=== PATIENT | female | born 2000 | race Caucasian/White ===

== ENCOUNTER 2024-01-07 05:44 | Inpatient (IN) | payer MEDICARE, SELFPAY ==
[2024-01-07] VITALS (11 sets, daily range): BP systolic 134–200; BP diastolic 76–134; BMI 49.5; BMI 49.6
[2024-01-07 01:17] LABS: Hemoglobin 14.3 g/dL (12.0-16.0); Mean Corpuscular Hgb 27.2 pg (27.0-31.0); Mean Platelet Volume 9.6 fL (7.4-10.4); Platelet Count 503 10^3/uL (130-400); Red Blood Cell Count 5.25 10^6/uL (4.20-5.40); Red Cell Dist. Width 14.1 % (11.5-14.5); White Blood Cell Count 22.7 10^3/uL (4.8-10.8)
[2024-01-07 01:30] LABS: ALT (SGPT) 30 U/L (0-35); AST (SGOT) 30 U/L (14-36); Albumin 4.4 g/dl (3.5-5.0); Alkaline Phosphatase 81 U/L (38-126); Blood Urea Nitrogen 23 mg/dl (7-17); Calcium 10.4 mg/dl (8.4-10.2); Carbon Dioxide 19 mmol/L (22-30); Chloride 105 mmol/L (98-107); Glucose 144 mg/dl (70-99); Potassium 5.2 mmol/L (3.5-5.1); Sodium 143 mmol/L (135-145); Total Bilirubin 0.3 mg/dl (0.2-1.3); Total Protein 7.2 g/dl (6.3-8.2); eGFR > 60.00
[2024-01-07 02:00] LABS: Urine Albumin 1+ (Neg - Trace); Urine Bilirubin Negative (Negative); Urine Character Very Cloudy (Clear); Urine Color Red; Urine Glucose Negative (Negative); Urine Ketone Negative (Negative); Urine Leukocyte Trace (Negative); Urine Nitrite Positive (Negative); Urine Occult Blood 4+ (Negative); Urine Urobilinogen Negative (Neg - 1+)
[2024-01-07 02:25] LABS: Urine Red Blood Cell >100 /HPF (0-2); Urine Squamous Cell >30 /LPF (Few)
[2024-01-07 02:26] LABS: Urine Bacteria Many (Negative)
[2024-01-07 02:42] LABS: Urine Albumin 3+ (Neg - Trace); Urine Bilirubin Negative (Negative); Urine Character Bloody (Clear); Urine Color Red; Urine Glucose Negative (Negative); Urine Ketone Trace (Negative); Urine Leukocyte Negative (Negative); Urine Nitrite Negative (Negative); Urine Occult Blood 4+ (Negative); Urine Urobilinogen Negative (Neg - 1+)
[2024-01-07 03:09] LABS: HCG, Serum Qualitative Screen Negative
[2024-01-07 03:10] LABS: Urine Red Blood Cell >100 /HPF (0-2)
[2024-01-07 03:11] LABS: Urine Bacteria Many (Negative)
[2024-01-07 03:12] LABS: Urine Squamous Cell >30 /LPF (Few)
[2024-01-07] MEDS: NSS 1000 IV ×2 (04:02→09:46)
[2024-01-07] MEDS: TORADOL 30 MG IV (04:02)
--- NOTE | 2024-01-07 05:08 | ED.GENMED ---
History of Present Illness
General
Chief Complaint: Abdominal Pain
Source: patient
Exam Limitations: none
Time Seen by Provider: 01/07/24 04:21
Nursing documentation reviewed up to this point in time: agreed with
History of Present Illness
History of Present Illness:
23-year-old female with past medical history as documented presents to the emergency room for evaluation of abdominal/flank pain. Patient reports onset of symptoms earlier this evening and they have been constant although intensity waxing and
waning since that time. She reports pain in the right mid abdomen radiates towards the right flank. No clear triggering or relieving factors noted. Associated with nausea, vomiting. She also reports some diaphoresis. She says she has noticed
some hematuria today. She denies any dysuria. She denies any fevers or chills. She denies any other complaints. She does have a history of kidney stones that she says feels similar.
Review of Systems
Review of Systems
All Other Systems: ROS reviewed and negative except as documented in HPI and ROS
Constitutional: Denies fever or chills
Respiratory: Denies trouble breathing
Cardiac: Denies chest pain or palpitations
ABD/GI: Reports abdominal pain, nausea and vomiting; Denies diarrhea
: Reports flank pain and bleeding; Denies dysuria
Musculoskeletal: Denies neck pain or back pain
Neurological: Denies dizzy or headache
Phy Exam
Physical Exam
Physical Exam:
General: Awake, alert; no acute distress
Head: Normocephalic, atraumatic
Eyes: Conjunctiva normal, sclera anicteric
Throat: Airway intact, handling secretions
Neck: Trachea midline
Lungs: Clear to auscultation bilaterally, no wheezing, rales, rhonchi
Heart: Regular rate and rhythm, no murmurs, gallops, or rubs
Abd: Soft, non distended, mild right-sided abdominal tenderness
Back: No CVA tenderness
Neuro: No gross deficit
Extremities: Warm and well-perfused with no edema
Scores
Heart Failure Risk
Heart Failure Risk Score: Not Applicable
Heart Score for Chest Pain Patients
STEMI patient?: Not applicable
Withdrawal Assessment of Alcohol
Withdrawal Assessment Completed?: Not applicable
Course
Orders/Labs/Results
Orders:
Orders
01/07/24 01:10
CMP [Comprehensive Metabolic Panel] Urgent
Complete Blood Count/No Diff Urgent
HCG, Serum Qualitative Screen Urgent
01/07/24 01:42
Urinalysis Reflex To Culture Urgent
Date Specimen was Collected: 01/07/24
Time Specimen was Collected: 01:40
Urine Microscopic Reflex Cult Urgent
Urine Culture Urgent
KYRA Source: U
Specimen Description:
Date Specimen was Collected: 01/07/24
Time Specimen was Collected: 01:40
01/07/24 02:34
Urinalysis Reflex To Culture Urgent
Date Specimen was Collected: 01/07/24
Time Specimen was Collected: 02:29
Urine Microscopic Reflex Cult Urgent
Urine Culture Urgent
KYRA Source: U
Specimen Description:
Date Specimen was Collected: 01/07/24
Time Specimen was Collected: 02:29
01/07/24 02:50
Add On- LAB Urgent
Tests Added?: serum HCG qual.
01/07/24 03:52
CT Abd/Pel (IV only)-DH only Urgent
Comment:
Reason For Exam: abd pain
01/07/24 03:55
0.9% Sodium Chloride 1000 ml [Nss] 1,000 ml IV BOLUS
Ketorolac [Toradol] 30 mg IV NOW STA
01/07/24 05:05
Morphine Sulfate 4 mg IV NOW STA
01/07/24 05:08
UROLOGY CONSULT Urgent
Consulting Provider: Owen Alves
Was physician already notified: Yes
CefTRIAXone [Rocephin] 1,000 mg IV NOW STA
01/07/24 05:15
Ondansetron Injectable [Zofran] 4 mg IV NOW STA
01/07/24 05:16
Sterile Water [Sterile Water For Injection] 10 ml .ROUTE .STK-MED ONE
Abnormal Lab Results
01/07/24 01/07/24 01/07/24
01:10 01:42 02:34
WBC 22.7 H 10^3/uL
(4.8-10.8)
MCV 80.0 L fL
(81.0-99.0)
Plt Count 503 H 10^3/uL
(130-400)
Potassium 5.2 H mmol/L
(3.5-5.1)
Carbon Dioxide 19 L mmol/L
(22-30)
BUN 23 H mg/dl
(7-17)
Glucose 144 H mg/dl
(70-99)
Calcium 10.4 H mg/dl
(8.4-10.2)
Urine Ketones Trace A
(Negative)
Ur Occult Blood Reflex 4+ A 4+ A
(Negative) (Negative)
Urine Nitrite (Reflex) Positive A
(Negative)
Leukocyte Esterase Rfl Trace A
(Negative)
Urine RBC >100 A /HPF >100 A /HPF
(0-2) (0-2)
Urine Bacteria (Reflex) Many A Many A
(Negative) (Negative)
Urine Albumin (Reflex) 1+ A 3+ A
(Neg - Trace) (Neg - Trace)
01/07/24 01:10
01/07/24 01:10
Vital Signs
Initial and Last Documented VS:
Initial Vital Signs
Temp Pulse Resp BP Pulse Ox
36.3 C 92 26 200/134 97
01/07/24 00:57 01/07/24 00:57 01/07/24 00:57 01/07/24 00:57 01/07/24 00:57
Last Documented Vital Signs
Temp Pulse Resp BP Pulse Ox
36.3 C 90 20 158/97 94
01/07/24 00:57 01/07/24 05:00 01/07/24 05:00 01/07/24 05:00 01/07/24 05:00
MDM/Problems Addressed
Differential Diagnosis Includes:
Kidney stone, appendicitis, ovarian cyst
MDM/Problems Addressed:
23-year-old female presents for evaluation of right sided abdominal pain associate with nausea, hematuria�similar in quality to prior kidney stones. Hypertensive, tachypneic, heart rate in the 90s, afebrile. Exam as above. Send labs including a
CBC and a CMP, hCG, urinalysis. Check CT abdomen pelvis. Treat pain and provide fluids. Reassess after the above.
Patient still having pain after Toradol will treat with morphine�requesting Zofran for nausea as well.
Labs reviewed CBC shows leukocytosis to 22.7. CMP shows acceptable renal function, marginal hyperkalemia. hCG negative. Urinalysis positive for blood also has many bacteria; WBCs obscured by RBCs. There are squamous cells that suggest
contaminated sample. CT of the abdomen pelvis shows obstructive 3 mm stone on the right with moderate hydronephrosis. There is also question of left-sided pyelonephritis. Given that she has multiple SIRS criteria including WBC of 22 and an
abnormal urinalysis we will treat with antibiotics. Case discussed with urology to consult. Will admit for continued care�case discussed with hospitalist.
Acute Exacerbation and/or Progression of Chronic Illness:
Acutely hypertensive likely related to pain�improved with pain control continue to monitor but no additional antihypertensives indicated at present
Acute Exacerbation and/or Progression of Chronic Illness: HTN
*Radiology
Radiology exam reviewed: radiology read reviewed
*Pulse Oximetry
Patient hypoxic: no
*Critical Care Note
Total Time (30-74mins, 75-104mins- exclusive of procedures): Not Applicable
Data Reviewed
Source: patient and spouse
Patient Management
Discussion with other providers: Hospitalist (Discussed with hospitalist) and [employer] Supervisor (Discussed with urology)
Escalation/DeEscalation of care consider admission/obs:
Admission indicated
ED Attending Note
-
Portions of this chart may have been created with voice recognition software.� Occasional wrong word or��sound alike� substitutions may have occurred due to the inherent limitations of voice recognition software.
Discharge Plan
Departure
Patient Disposition: Admit
Date of Disposition: 01/07/24
Time of Disposition: 05:09
Admit to doctor: Chris
Presentation/result/management discussed w/ accepting MD/DO: Hospitalist
Discharge Problem:
Kidney stone, Pyelonephritis
Prescriptions:
No Action
Mirena 21 mcg/24 hr (8 yrs) 52 mg Intrauterine Device
1 device INTRAUTERINE ONCE
omeprazole 40 mg Capsule,Delayed Release(Dr/Ec)
40 mg PO BID
propranolol [Inderal] 20 mg Tablet
20 mg PO BID
indomethacin 75 mg Capsule, Extended Release
75 mg PO BID
nortriptyline [Pamelor] 50 mg Capsule
50 mg PO HS
duloxetine [Cymbalta] 60 mg Capsule,Delayed Release(Dr/Ec)
120 mg PO DAILY
pregabalin [Lyrica] 150 mg Capsule
150 mg PO BID
Botox 200 unit Recon Soln
200 unit SC ONCE
lurasidone [Latuda] 40 mg Tablet
40 mg PO DAILY
Ozempic 0.25 mg or 0.5 mg(2 mg/1.5 mL) Pen Injector
0.5 mg SC QWEEK
Referrals:
PRIVATE,PHYSICIAN [Family Provider] -
Interventions
Interventions:
*Risk Screen - Suicide Last Done: 01/07/24 00:57
*General Assessment Last Done: 01/07/24 02:27
*Neglect/Abuse Screening Last Done: 01/07/24 00:57
ED- Fall Risk Assessment Last Done: 01/07/24 02:28
*ED COVID-19 Vaccine History Last Done: 01/07/24 02:27
ZG-Htqfqe-Euqpuzgfbs Assessment Last Done: 01/07/24 03:06
Discharge Date and Time
Print Language: [place]LAND[place]
[2024-01-07] MEDS: MORPHINE SULFATE 4 MG IV (05:20)
[2024-01-07] MEDS: ZOFRAN 4 MG IV (05:20)
[2024-01-07] MEDS: ROCEPHIN 1000 MG IV (05:20)
--- NOTE | 2024-01-07 05:37 | HPS.HSE ---
Family Physician
-
Family Physician: PHYSICIAN PRIVATE
Chief Complaint
-
Abd Pain
History of Present Illness
Patient is a 23y F with PMH significant for PCOS, anxiety / depression and prior nephrolithiasis who presents to ED complaining of abdominal pain. Patient states her symptoms started this evening hours prior to presentation. She started with
RUQ abdominal pain that was quite severe. This was followed by nausea and emesis at home as well as diaphoresis, lightheadedness and shaking chills. Patient presented to the ED for further evaluation.
After arrival at the ED, patient has noted bloody urine.
Patient reports prior kidney stone about 3 years ago with pain in similar location. She passed that stone spontaneously.
She denies any other recent complaints or concerns.
Medical History
Past Medical History
Past Medical History: Reports Other
Additional Past Medical History:
PCOS
Morbid Obesity
Migraine Headaches
Anxiety / Depression
Borderline Personality Disorder
Lumbar Spondylosis
Past Surgical History: Reports Other
Additional Past Surgical History:
Cholecystectomy
Social History
Tobacco: Non-smoker
Alcohol: Occasional
Drug: Marijuana (Medical card)
Personal: Partner
Family History
Family History: Not pertinent
Allergies / Home Medications
Allergies reflects when Allergies were last updated in [employer].
Home Medications with original date entered in [employer]
Allergy/Medication List:
Allergies
Allergy/AdvReac Type Severity Reaction Status Date / Time
hydroxyzine Allergy Unknown Verified 01/07/24 01:02
lamotrigine [From Lamictal] Allergy Unknown Verified 01/07/24 01:02
oxycodone Allergy Unknown Verified 01/07/24 01:02
peanut oil Allergy Unknown Verified 01/07/24 01:02
topiramate [From Topamax] Allergy Unknown Verified 01/07/24 01:02
ziprasidone Allergy Unknown Verified 01/07/24 01:02
Home Medications
duloxetine 60 mg capsule,delayed release (Cymbalta) 120 mg PO DAILY 01/07/24
indomethacin 75 mg capsule,extended release 75 mg PO BID 01/07/24
levonorgestrel 21 mcg/24 hr (up to 8 years) 52 mg intrauterine device (Mirena) 1 device intrauterine ONCE 01/07/24
lurasidone 40 mg tablet (Latuda) 40 mg PO DAILY 01/07/24
nortriptyline 50 mg capsule (Pamelor) 50 mg PO HS 01/07/24
omeprazole 40 mg capsule,delayed release 40 mg PO BID 01/07/24
onabotulinumtoxinA 200 unit solution for injection (Botox) 200 unit SC ONCE 01/07/24
pregabalin 150 mg capsule (Lyrica) 150 mg PO BID 01/07/24
propranolol 20 mg tablet 20 mg PO BID 01/07/24
semaglutide 0.25 mg or 0.5 mg (2 mg/1.5 mL) subcutaneous pen injector (Ozempic) 0.5 mg SC QWEEK 01/07/24
Review of Systems
-
History Source: Patient
A 12 point ROS was completed and negative except as noted: Yes
Constitutional: Reports Fatigue and Chills; Denies Fever
EENT: Denies Sore Throat
Respiratory: Denies Cough or Trouble Breathing
Cardiac: Denies Chest Pain or Palpitations
Abdomen/GI: Reports Abdominal Pain, Nausea and Vomiting; Denies Diarrhea, Bloody Stools or Black Stools
: Reports Bleeding; Denies Dysuria or Frequency
Neurological: Reports Dizzy; Denies Headache
Psych: Denies Depression or Anxiety
Physical Exam
Vital Signs
Vital Signs
Temp Pulse Resp BP Pulse Ox
97.4 F 90 20 158/97 94
01/07/24 00:57 01/07/24 05:00 01/07/24 05:00 01/07/24 05:00 01/07/24 05:00
Physical Exam
General: Other (23y F in no acute distress.)
HEENT: Moist mucous membranes, PERRLA and Other (Thick neck.)
Respiratory: Clear; No Wheezes, Rales or Rhonchi
Cardiac: S1/S2 and Regular Rhythm; No Murmur
GI: Soft, Non Distended, Normal Bowel Sounds and Other (Pos RUQ tenderness. No rebound / guarding.)
Genito-urinary: No costovertebral tender
Musculoskeletal: No Clubbing, No Cyanosis and No Edema
Neuro: AO x 3
Laboratory Results
-
01/07/24 01:10
01/07/24 01:10
Laboratory Results
Total Bilirubin 0.3 mg/dl (0.2-1.3) 01/07/24 01:10
AST 30 U/L (14-36) 01/07/24 01:10
ALT 30 U/L (0-35) 01/07/24 01:10
Alkaline Phosphatase 81 U/L (38-126) 01/07/24 01:10
Impression/Plan
-
A/P: Patient is a 23y F with PMH significant for PCOS and anxiety / depression who presents to ED complaining of abdominal pain.
Right Ureteral Stone
Pyelonephritis
- Admit for further evaluation and treatment.
- CT shows R UVJ stone with associated hydronephrosis.
- Pos RUQ tenderness on exam, WBC = 22k, subjective chills and hematuria.
- IV abx with ceftriaxone for now.
- Pain control, antiemetics, IVFs, etc.
- Tamsulosin daily. Strain urine.
- Urology consulted - NPO for possible OR later this AM.
- Follow for any new / worsening symptoms.
Hyperkalemia
- Mild. IVFs as noted above. Follow-up repeat labs.
Anxiety / Depression
Borderline Personality Disorder
- Stable. Continue current psychotropic med regimen without changes.
PCOS
Morbid Obesity
- Affects all aspects of care.
- Patient on Ozempic as an outpatient for weight loss.
- Encourage healthy diet and increased exercise with goal of weight reduction.
DVT Prophylaxis: SCDs
Code Status: Full
--- NOTE | 2024-01-07 07:25 | W.PN.UPDATE ---
Update Note
Progress Note Update
Patient's pain is improved, 2 out of 10 in intensity.
Discussed with urology, recommend discharge home on oral antibiotics and Flomax.
Follow-up with urology in the office.
--- NOTE | 2024-01-07 09:05 | W.PN.URO.CBU ---
Today's Communication / Plan
-
await cbc but regular diet and no op room unless pt worsens
Assessment / Plan
-
trial of probably at home bur await cbc pt comfortable ad non toxic and stone 3mm with min hydro
Diagnosis
-
Date of Service: January 07, 2024
-
Patient Diagnosis:3 mm stone ryt uvj stone and possible left pyelo but asx left no fevr
Post Op Day:
Subjective
-
rt colic no fever no left pain
Objective
-
Vital Signs
Temp Pulse Resp BP Pulse Ox
98.0 F 87 16 164/95 98
01/07/24 08:18 01/07/24 08:18 01/07/24 08:18 01/07/24 08:18 01/07/24 08:18
Laboratory Results
01/07/24 01:10
01/07/24 01:10
Review of Systems
-
: Flank Pain
Physical Exam
-
General - well developed, well nourished, no acute distress
Chest - clear bilaterally
Abdomen - soft, non-tender, positive bowel sounds, no CVAT, no incisional pain or distention
Genitalia - normal
Rectal - normal
Skin - warm & dry with no rash
Neuro - AOx3, no motor deficits
Extremities - no clubbing, no cyanosis, no edema
Incision - clean, dry
Dressing - clean, dry, intact
Care Review
Data Reviewed
Discussed with: Hospitalist and Nursing
CT Scan: Image Pers Reviewed
[2024-01-07] MEDS: CYMBALTA DELAYED RELEASE 120 MG PO (09:46)
[2024-01-07] MEDS: LYRICA 150 MG PO (09:46)
[2024-01-07] MEDS: FLOMAX 0.4 MG PO (09:47)
[2024-01-07] MEDS: PROTONIX 40 MG PO (09:47)
[2024-01-07] MEDS: DILAUDID 0.5 MG IV (09:49)
[2024-01-07 10:05] LABS: Hematocrit 42.3 % (37.0-47.0); Mean Corp Hgb Conc. 33.1 g/dL (33.0-37.0); Mean Corpuscular Hgb 27.7 pg (27.0-31.0); Mean Corpuscular Volume 83.8 fL (81.0-99.0); Platelet Count 423 10^3/uL (130-400); Red Blood Cell Count 5.05 10^6/uL (4.20-5.40); White Blood Cell Count 20.6 10^3/uL (4.8-10.8)
[2024-01-07] MEDS: INDERAL 20 MG PO (10:21)
[2024-01-07] MEDS: LATUDA 40 MG PO (10:21)
[2024-01-07 13:13] LABS: Hematocrit 39.3 % (37.0-47.0); Hemoglobin 13.1 g/dL (12.0-16.0); Mean Corp Hgb Conc. 33.3 g/dL (33.0-37.0); Mean Corpuscular Hgb 26.8 pg (27.0-31.0); Mean Corpuscular Volume 80.5 fL (81.0-99.0); Platelet Count 450 10^3/uL (130-400); Red Blood Cell Count 4.88 10^6/uL (4.20-5.40); Red Cell Dist. Width 14.1 % (11.5-14.5); White Blood Cell Count 20.9 10^3/uL (4.8-10.8)
--- NOTE | 2024-01-07 13:54 | CM ---
Reviewed the chart notes and spoke with the patient and her significant other at the bedside. The patient resides with her significant other and his father in a one story home with one step to enter. Patient reports no DME/VN/SNF in the past. The
patient confirmed her pharmacy of choices is [facility]. CM continues to be available to patient/family and is monitoring medical plan for needs at discharge.
Plan: Discharge to home today. Patient's significant other will provide transportation home.
== END 2024-01-07 15:01 | disposition home or self-care (01) | DRG 690 ==
LOC: 2 NORTH 05:44
PROVIDERS: Emergency Medicine; ADMITTING PHYSICIAN Hospitalist; ATTENDING PHYSICIAN Family Medicine; CONSULT PHYSICIAN Specialist; EMERGENCY PHYSICIAN Emergency Medicine
DX: N13.6 Pyonephrosis (principal); Z68.42 Body mass index [BMI] 45.0-49.9, adult; F32.A Depression, unspecified; F41.9 Anxiety disorder, unspecified; E87.5 Hyperkalemia; E28.2 Polycystic ovarian syndrome; E66.01 Morbid (severe) obesity due to excess calories; F60.3 Borderline personality disorder; G43.909 Migraine, unspecified, not intractable, without status migrainosus; M47.816 Spondylosis without myelopathy or radiculopathy, lumbar region; Z88.5 Allergy status to narcotic agent; Z88.8 Allergy status to other drugs, medicaments and biological substances; Z79.899 Other long term (current) drug therapy
CPT/HCPCS: 74177; 80053; 81003; 81015; 84703; 85027; 87070; 87086; 96361; 96374; 96375; 99285; Q9967

== ENCOUNTER 2024-03-25 09:45 | Emergency (ER) | payer OTHER, SELFPAY ==
[2024-03-25 10:01] VITALS: BP 144/93
[2024-03-25] MEDS: ZOFRAN 4 MG IV ×2 (11:25→13:02)
[2024-03-25 11:26] VITALS: BP 160/110
[2024-03-25] MEDS: TORADOL 30 MG IV (11:26)
[2024-03-25 11:29] VITALS: BP 136/81
[2024-03-25 11:34] LABS: % Basophils 0.6 % (0-2); % Eosinophils 0.3 % (0-6); % Immature Granulocytes 1.2 % (0-0.5); % Lymphocytes 17.2 % (20.5-51.1); % Monocytes 6.4 % (1.7-9.3); % Neutrophils 74.3 % (42.2-75.2); Absolute Basophils 0.1 10^3/uL (0-0.2); Absolute Eosinophils 0.1 10^3/uL (0-0.7); Absolute Immature Granulocytes 0.2 10^3/uL (0-0.05); Absolute Lymphocytes 3.3 10^3/uL (1.2-3.4); Absolute Monocytes 1.2 10^3/uL (0.1-0.6); Absolute Neutrophils 14.3 10^3/uL (1.4-6.5); Hemoglobin 15.8 g/dL (12.0-16.0); Mean Corp Hgb Conc. 33.6 g/dL (33.0-37.0); Mean Corpuscular Hgb 27.8 pg (27.0-31.0); Mean Corpuscular Volume 82.6 fL (81.0-99.0); Mean Platelet Volume 10.2 fL (7.4-10.4); Nucleated Red Blood Cells % 0 %; Platelet Count 433 10^3/uL (130-400); Red Blood Cell Count 5.69 10^6/uL (4.20-5.40); Red Cell Dist. Width 14.2 % (11.5-14.5); White Blood Cell Count 19.3 10^3/uL (4.8-10.8)
--- NOTE | 2024-03-25 11:45 | ED.GENMED ---
History of Present Illness
General
Chief Complaint: Flank Pain
Source: patient and records
Time Seen by Provider: 03/25/24 10:56
History of Present Illness
History of Present Illness:
23 year old female with past medical history of kidney stone/pyelonephritis, anxiety/depression, previous cholecystectomy presenting to the emergency department for evaluation of right-sided flank pain that started about 1 week ago accompanied with
nausea and vomiting with pain described to be constant, nonradiating, somewhat sharp and unrelieved with [id number] measures. Patient states that within the week she believes she has passed 2 kidney stones and also notes that her OTA had
placed her on antibiotics for a UTI and when asked if she had any urinary symptoms patient said no but her OTA still decided to start her on an antibiotic. On record review it appears patient was seen here at this hospital in December and
diagnosed with a right 3 mm UVJ stone with resulting pyelonephritis, was admitted for IV antibiotics and ultimately discharged home.
Past History
Past History
ED Past Medical History: Psychiatric and Other (Kidney stones)
Social History
Tobacco: Non-smoker
Alcohol: None
Drug: None
Personal: Single
Living: with family
Review of Systems
Review of Systems
All Other Systems: ROS reviewed and negative except as documented in HPI and ROS
Phy Exam
Physical Exam
Physical Exam:
GENERAL: Alert , in no apparent distress but does appear mildly uncomfortable
EYE: clear conjunctiva b/l
HEAD: NCAT
ENT: o/p clr, mmm.
CARDIAC: Regular rate and rhythm .
LUNGS: Clear breath sounds bilaterally, no acute respiratory distress, no wheezes/rales/rhonchi
ABDOMEN: Soft, without focal tenderness, no r/g, right CVAT
NEUROLOGICAL: Alert and oriented
SKIN: Warm and dry, skin intact.
MUSCULOSKELETAL: No edema, well perfused.
PSYCH: Normal and appropriate interaction.
Scores
Heart Failure Risk
Heart Failure Risk Score: Not Applicable
Heart Score for Chest Pain Patients
STEMI patient?: Not applicable
Withdrawal Assessment of Alcohol
Withdrawal Assessment Completed?: Not applicable
Course
Orders/Labs/Results
Orders:
Orders
03/25/24 10:57
Test Result ONCE
03/25/24 11:09
CT Abd/pel Without Iv Or Oral Urgent
Comment:
Reason For Exam: right flank pain, hx stones
Ketorolac [Toradol] 30 mg IV NOW STA
Ondansetron Injectable [Zofran] 4 mg IV NOW STA
03/25/24 11:25
Complete Blood Count/With Diff Urgent
Comprehensive Metabolic Panel Urgent
HCG, Serum Qualitative Screen Urgent
Lipase Urgent
03/25/24 12:54
CefTRIAXone [Rocephin] 1,000 mg IV NOW STA
Morphine Sulfate 4 mg IV NOW STA
Ondansetron Injectable [Zofran] 4 mg IV NOW STA
03/25/24 13:00
Lactic Acid Q4H
Comment: CANCEL 2nd LACTIC ACID IF 1st LACTIC ACID IS LESS THAN 2
Procalcitonin Urgent
PCT Algorithmm Indication: Sepsis
03/25/24 14:25
Prochlorperazine [Compazine] 10 mg IV NOW STA
03/25/24 14:41
Urinalysis Reflex To Culture Urgent
Date Specimen was Collected: 03/25/24
Time Specimen was Collected: 10:59
Urine Microscopic Reflex Cult Urgent
Abnormal Lab Results
03/25/24 03/25/24
11:25 14:41
WBC 19.3 H 10^3/uL
(4.8-10.8)
RBC 5.69 H 10^6/uL
(4.20-5.40)
Plt Count 433 H 10^3/uL
(130-400)
Abs Immat Gran (auto) 0.2 H 10^3/uL
(0-0.05)
Absolute Neuts (auto) 14.3 H 10^3/uL
(1.4-6.5)
Absolute Monos (auto) 1.2 H 10^3/uL
(0.1-0.6)
Immature Gran % 1.2 H %
(0-0.5)
Lymphocytes % 17.2 L %
(20.5-51.1)
Chloride 95 L mmol/L
(98-107)
Glucose 107 H mg/dl
(70-99)
Calcium 11.0 H mg/dl
(8.4-10.2)
Total Protein 8.6 H g/dl
(6.3-8.2)
Albumin 5.1 H g/dl
(3.5-5.0)
Ur Occult Blood Reflex 4+ A
(Negative)
Leukocyte Esterase Rfl Trace A
(Negative)
03/25/24 11:25
03/25/24 11:25
Vital Signs
Initial and Last Documented VS:
Initial Vital Signs
Temp Pulse Resp BP Pulse Ox
99.0 F 98 18 144/93 97
03/25/24 10:01 03/25/24 10:01 03/25/24 10:01 03/25/24 10:01 03/25/24 10:01
Last Documented Vital Signs
Temp Pulse Resp BP Pulse Ox
99.0 F 84 16 136/81 97
03/25/24 10:01 03/25/24 11:30 03/25/24 11:44 03/25/24 11:29 03/25/24 11:30
MDM/Problems Addressed
Differential Diagnosis Includes:
Renal/ureteral colic, urinary tract infection, pyelonephritis, cholecystitis/gallstones considered however patient is status postcholecystectomy
MDM/Problems Addressed:
23-year-old female presenting to the ER for evaluation of right-sided flank/abdominal pain, currently being treated for urinary tract infection by OTA. No fevers. Appears uncomfortable here. Reproducible right-sided CVA tenderness. Recent
history of a right-sided UVJ stone resulting in pyelonephritis. Will check labs and CT. Pain control with Toradol and IV fluids ordered. Disposition pending
*Radiology
Radiology exam reviewed: radiology read reviewed (4mm left mid ureteral stone. Normal appendix)
*Pulse Oximetry
Patient hypoxic: no
*Critical Care Note
Total Time (30-74mins, 75-104mins- exclusive of procedures): Not Applicable
Data Reviewed
Review of Other/Old Records Reveals: Labs, Records, Radiology Studies and Discharge Summary
Source: patient and records
Patient Management
Escalation/DeEscalation of care consider admission/obs:
CT scan shows 4mm LEFT ureteral stone without obstruction. Right sided findings from previous CT resolved. Leukocytosis on labs noted however patient reports this is chronic and from unspecified etiology. Lactic acid and procalcitonin ordered and
both negative. UA pending. Anticipate d/c home
UA without signs of infection. Patient did note some increased pain/nausea so additional meds given and now feeling much improved. Feels well to go home. Aware of return precautions. Will follow up with urology.
ED Attending Note
-
Portions of this chart may have been created with voice recognition software.� Occasional wrong word or��sound alike� substitutions may have occurred due to the inherent limitations of voice recognition software.
Discharge Plan
Departure
Patient Disposition: Home (Routine Discharge)
Date of Disposition: 03/25/24
Time of Disposition: 15:21
Patient with high blood pressure during this ER visit?: Yes
Discharge Problem:
Abdominal pain, Nausea, Calculus of left ureter
Instructions: Kidney Stones (DC)
Prescriptions:
New
ondansetron 4 mg tablet,disintegrating
4 mg PO TIDPRN PRN (Reason: nausea/vomiting) Qty: 10 0RF
hydrocodone-acetaminophen 5-300 mg tablet
1 tab PO BID PRN (Reason: Pain) Qty: 6 0RF
No Action
omeprazole 40 mg Capsule,Delayed Release(Dr/Ec)
40 mg PO BID
propranolol 20 mg Tablet
20 mg PO BID
Patient Comments:
no pharmacy fills, no ecw
indomethacin 75 mg Capsule, Extended Release
75 mg PO BID
nortriptyline [Pamelor] 50 mg Capsule
50 mg PO HS
duloxetine [Cymbalta] 60 mg Capsule,Delayed Release(Dr/Ec)
60 mg PO DAILY
pregabalin [Lyrica] 150 mg Capsule
150 mg PO BID
lurasidone [Latuda] 40 mg Tablet
40 mg PO QPM
Ozempic 0.25 mg or 0.5 mg(2 mg/1.5 mL) Pen Injector
0.5 mg SC MATTHEW
trazodone 50 mg Tablet
100 mg PO HS
sumatriptan succinate [Imitrex] 100 mg Tablet
0 mg PO .COMPLEX
Rx Instructions:
take 1 tab at onset of headache; if no relief, may repeat 1 tab after at least 2 hrs; max = 2 tabs/24 hrs
hydroxyzine HCl 50 mg Tablet
50 mg PO DAILYPRN PRN (Reason: anxiety)
melatonin 3 mg Tablet
3 mg PO HS
cholecalciferol (vitamin D3) [Vitamin D3] 25 mcg (1,000 unit) Tablet
25 mcg PO DAILY
famotidine [Pepcid] 40 mg Tablet
40 mg PO HS
dicyclomine 20 mg Tablet
20 mg PO BID
buspirone 7.5 mg Tablet
7.5 mg PO TID
Referrals:
Jesse Arguello MD [Active] - (Urology)
UNKNOWN - PT DOES,NOT KNOW [Family Provider] -
Interventions
Interventions:
*Risk Screen - Suicide Last Done: 03/25/24 10:01
*General Assessment Last Done: 03/25/24 10:01
*Neglect/Abuse Screening Last Done: 03/25/24 10:01
ED- Fall Risk Assessment Last Done: 03/25/24 11:05
RC-Hhjtvk-Uafqvcoagk Assessment Last Done: 03/25/24 11:05
Discharge Date and Time
Print Language: FRENCH
[2024-03-25 11:50] LABS: ALT (SGPT) 26 U/L (0-35); AST (SGOT) 24 U/L (14-36); Albumin 5.1 g/dl (3.5-5.0); Alkaline Phosphatase 66 U/L (38-126); Blood Urea Nitrogen 13 mg/dl (7-17); Carbon Dioxide 28 mmol/L (22-30); Chloride 95 mmol/L (98-107); Glucose 107 mg/dl (70-99); Lipase 99 U/L (23-300); Potassium 4.4 mmol/L (3.5-5.1); Sodium 139 mmol/L (135-145); Total Bilirubin 0.6 mg/dl (0.2-1.3); Total Protein 8.6 g/dl (6.3-8.2); eGFR > 60.00
[2024-03-25 11:57] LABS: HCG, Serum Qualitative Screen Negative
[2024-03-25] MEDS: MORPHINE SULFATE 4 MG IV (13:03)
[2024-03-25 13:33] LABS: Lactic Acid 1.3 mmol/L (0.7-2.0)
[2024-03-25 13:45] LABS: Procalcitonin < 0.05 ng/ml (0.0-0.25)
[2024-03-25] MEDS: COMPAZINE 10 MG IV (14:51)
[2024-03-25 15:00] VITALS: BP 130/80
[2024-03-25 15:08] LABS: Urine Albumin Trace (Neg - Trace); Urine Bilirubin Negative (Negative); Urine Character Clear (Clear); Urine Color Yellow; Urine Glucose Negative (Negative); Urine Ketone Negative (Negative); Urine Leukocyte Trace (Negative); Urine Nitrite Negative (Negative); Urine Occult Blood 4+ (Negative); Urine Urobilinogen Negative (Neg - 1+)
[2024-03-25 15:31] LABS: Urine Squamous Cell 26-30 /LPF (Few)
[2024-03-25 15:32] LABS: Urine Bacteria Moderate (Negative); Urine Red Blood Cell 30-40 /HPF (0-2); Urine White Cell 0-2 /HPF (0-5)
== END 2024-03-25 13:30 | disposition home or self-care (01) ==
LOC: EMR 09:45
PROVIDERS: Physician Assistant Medical; EMERGENCY PHYSICIAN Emergency Medicine
DX: N20.1 Calculus of ureter (principal); R11.0 Nausea; Z90.49 Acquired absence of other specified parts of digestive tract
CPT/HCPCS: 96374; 96375; 96376; 99284; 74176; 80053; 81003; 81015; 83605; 83690; 84145; 84703; 85025; 87086

== ENCOUNTER → 2024-04-14 10:13 | Outpatient (REF) | payer OTHER, SELFPAY | LOC: HWRAD 10:13 | PROVIDERS: ATTENDING PHYSICIAN Specialist | DX: N20.0 Calculus of kidney (principal) | CPT/HCPCS: 74018 ==

== ENCOUNTER 2024-04-15 06:26 | Inpatient (IN) | payer OTHER, SELFPAY ==
[2024-04-15] VITALS (7 sets, daily range): BP systolic 132–188; BP diastolic 78–126; BMI 48.7
--- NOTE | 2024-04-15 03:30 | ED.GENMED ---
History of Present Illness
General
Chief Complaint: Flank Pain
Source: patient
Exam Limitations: none
Time Seen by Provider: 04/15/24 03:07
Nursing documentation reviewed up to this point in time: agreed with
History of Present Illness
History of Present Illness:
Pleasant 23-year-old female who presents with left flank pain. She was seen in the emergency department on March 25, 2024 and diagnosed with a 4 mm proximal left ureteric stone. Patient states that her flank pain persisted so she followed up
with the [facility] and they ordered an x-ray. There is no radiographic evidence of kidney stone noted. Tonight she states that her pain worsened and she started to feel feverish and have chills. Here in the emergency department she
was afebrile. Patient also reported some nausea when pain was at its worst.
Past History
Past History
ED Past Medical History: Psychiatric and Other (Kidney stones)
Social History
Tobacco: Non-smoker
Alcohol: None
Drug: None
Personal: Single
Living: with family
Review of Systems
Review of Systems
Allergies reviewed?: Yes
Other source history: family
All Other Systems: Not applicable
Constitutional: Reports fever, fatigue, sleep disturbance and chills
EENT: Reports no symptoms
Respiratory: Reports no symptoms
Cardiac: Reports no symptoms
ABD/GI: Reports no symptoms
: Reports flank pain
Musculoskeletal: Reports no symptoms
Skin: Reports no symptoms
Neurological: Reports no symptoms
Endocrine: Reports no symptoms
Hematologic/Lymphatic: Reports no symptoms
Psychiatric: Reports anxiety
Phy Exam
General Physical Exam
General Presentation: well appearing and moderate distress
General Skin: warm and dry
General Habitus: normal
General Mental: alert
General Hydration: appears well hydrated
ENT Exam
ENT Exam: EOMI, pharynx normal, neck supple and normocephalic
Eye Exam
Eye Exam: PERRL, cornea clear and conjunctiva normal
Cardiovascular Exam
Cardiovascular Exam: regular rate/rhythm, no edema, no murmur and normal peripheral pulses
Pulmonary Exam
Pulmonary Exam: lungs clear, no respiratory distress, no rales, no crackles, no rhonchi, no stridor, no wheezing and no cough
Gastrointestinal Exam
Gastrointestinal Exam: normal bowel sounds, non tender, soft, no organomegaly, no pulsatile mass and non distended
Neurological Exam
Neurological Exam: alert, oriented x3, no motor deficits and speech normal
Musculoskeletal Exam
Musculoskeletal Exam: full ROM, no edema, back tenderness (Left flank pain) and neuro vasc intact
Skin Exam
Skin Exam: normal color, warm/dry, no rash and no petechia
Psychiatric Exam
Psychiatric Exam: normal mood/affect
Course
Orders/Labs/Results
Orders:
Orders
04/15/24 03:06
Test Result ONCE
04/15/24 03:34
Complete Blood Count/With Diff Urgent
Comprehensive Metabolic Panel Urgent
HCG, Serum Qualitative Screen Urgent
Lipase Urgent
Urinalysis Reflex To Culture Urgent
Date Specimen was Collected: 04/15/24
Time Specimen was Collected: 03:26
Urine Microscopic Reflex Cult Urgent
Urine Culture Urgent
KYRA Source: U
Specimen Description:
Date Specimen was Collected: 04/15/24
Time Specimen was Collected: 03:26
04/15/24 03:35
PTT Urgent
Comment: Obtain baseline before beginning heparin infusion if not already collected
04/15/24 03:39
0.9% Sodium Chloride 1000 ml [Nss] 1,000 ml IV BOLUS
Ketorolac [Toradol] 15 mg IM NOW STA
Ondansetron Injectable [Zofran] 4 mg IV NOW STA
04/15/24 04:00
Ketorolac [Toradol] 15 mg IV NOW STA
04/15/24 05:40
HYDROmorphone [Dilaudid] 0.5 mg .ROUTE .STK-MED ONE
04/15/24 05:42
HYDROmorphone [Dilaudid] 0.5 mg IV NOW STA
04/15/24 06:12
Admit/Transfer Patient As Directed
Co-Sign Provider:
Level of Care: Inpatient admission
Assign to:: Medical/Surgical
Physician / Group: Chris
Diagnosis: Nephrolithiasis / UTI
Reason for Hospitalization: Nephrolithiasis / UTI
Expected length of stay greater than two midnights?: Yes
ELOS- Estimated Length of Stay in days: 2
I certify the patient meets the requirements for IP care: Yes
04/15/24 06:13
PRN Pain Medication Management As Directed
May give lesser potent ordered pain med per pt: Yes
preference::
Protocol:: Medication orders for pain may be administered in a
manner that supports deferring to patient preference
when the pt is:
- Requesting an ordered lesser potent pain medication.
Least to most potent pain medications are defined
as: acetaminophen < NSAID < tramadol < opioids
(morphine, oxycodone, hydromorphone).
- Requesting a lesser dose of the same medication IF
ORDERED.
- Requesting a less intrusive route of administration
if both routes are prescribed by the provider (PO <
IV).
04/15/24 06:14
Code Status As Directed
Resuscitation Status: Full Code
04/15/24 06:46
Ketorolac [Toradol] 15 mg IV Q6HPRN PRN
04/15/24 08:00
CefTRIAXone [Rocephin] 1,000 mg IV Q24H
Abnormal Lab Results
04/15/24
03:34
WBC 15.3 H 10^3/uL
(4.8-10.8)
MCHC 32.4 L g/dL
(33.0-37.0)
Abs Immat Gran (auto) 0.1 H 10^3/uL
(0-0.05)
Absolute Neuts (auto) 11.2 H 10^3/uL
(1.4-6.5)
Absolute Monos (auto) 1.0 H 10^3/uL
(0.1-0.6)
Immature Gran % 0.7 H %
(0-0.5)
Lymphocytes % 18.9 L %
(20.5-51.1)
Glucose 120 H mg/dl
(70-99)
Ur Occult Blood Reflex 4+ A
(Negative)
Urine Bacteria (Reflex) Many A
(Negative)
04/15/24 03:34
04/15/24 03:34
Vital Signs
Initial and Last Documented VS:
Initial Vital Signs
Temp Pulse Resp BP Pulse Ox
97.8 F 110 24 188/126 100
04/15/24 02:51 04/15/24 02:51 04/15/24 02:51 04/15/24 02:51 04/15/24 02:51
Last Documented Vital Signs
Temp Pulse Resp BP Pulse Ox
97.8 F 101 30 132/78 91
04/15/24 02:51 04/15/24 06:45 04/15/24 06:45 04/15/24 06:00 04/15/24 06:45
*Critical Care Note
Total Time (30-74mins, 75-104mins- exclusive of procedures): Not Applicable
Update Note
Update Note:
04/15/2024 0339 AM: Spoke with Alessandro Knight who recommends admission to the hospital. Patient will be seen by him at 7 AM.
ED Attending Note
-
Portions of this chart may have been created with voice recognition software.� Occasional wrong word or��sound alike� substitutions may have occurred due to the inherent limitations of voice recognition software.
Discharge Plan
Departure
Patient Disposition: Admit
Date of Disposition: 04/15/24
Time of Disposition: 03:37
Presentation/result/management discussed w/ accepting MD/DO: Hospitalist
Discharge Problem:
Kidney stone
Interventions
Interventions:
*Risk Screen - Suicide Last Done: 04/15/24 02:51
*General Assessment Last Done: 04/15/24 03:40
*Neglect/Abuse Screening Last Done: 04/15/24 02:51
ED- Fall Risk Assessment Last Done: 04/15/24 03:40
*ED COVID-19 Vaccine History Last Done: 04/15/24 03:40
UM-Njbyow-Wmvsajukqr Assessment Last Done: 04/15/24 03:40
ED-Female Genitourinary Assessment Last Done: 04/15/24 03:40
[2024-04-15 03:44] LABS: Urine Albumin Negative (Neg - Trace); Urine Bilirubin Negative (Negative); Urine Character Slightly Cloudy (Clear); Urine Color Yellow; Urine Glucose Negative (Negative); Urine Ketone Negative (Negative); Urine Leukocyte Negative (Negative); Urine Nitrite Negative (Negative); Urine Occult Blood 4+ (Negative); Urine Urobilinogen Negative (Neg - 1+)
[2024-04-15 03:47] LABS: % Basophils 0.5 % (0-2); % Eosinophils 0.8 % (0-6); % Immature Granulocytes 0.7 % (0-0.5); % Lymphocytes 18.9 % (20.5-51.1); % Monocytes 6.2 % (1.7-9.3); % Neutrophils 72.9 % (42.2-75.2); Absolute Basophils 0.1 10^3/uL (0-0.2); Absolute Eosinophils 0.1 10^3/uL (0-0.7); Absolute Immature Granulocytes 0.1 10^3/uL (0-0.05); Absolute Lymphocytes 2.9 10^3/uL (1.2-3.4); Absolute Neutrophils 11.2 10^3/uL (1.4-6.5); Hematocrit 41.1 % (37.0-47.0); Hemoglobin 13.3 g/dL (12.0-16.0); Mean Corp Hgb Conc. 32.4 g/dL (33.0-37.0); Mean Corpuscular Hgb 27.6 pg (27.0-31.0); Mean Corpuscular Volume 85.3 fL (81.0-99.0); Mean Platelet Volume 10.1 fL (7.4-10.4); Nucleated Red Blood Cells % 0 %; Platelet Count 383 10^3/uL (130-400); Red Blood Cell Count 4.82 10^6/uL (4.20-5.40); White Blood Cell Count 15.3 10^3/uL (4.8-10.8)
[2024-04-15 03:56] LABS: HCG, Serum Qualitative Screen Negative
[2024-04-15 03:57] LABS: APTT 32.6 Sec (23.4-35.0)
[2024-04-15] MEDS: NSS 1000 IV ×3 (03:57→18:16)
[2024-04-15] MEDS: ZOFRAN 4 MG IV ×2 (04:00→20:18)
[2024-04-15] MEDS: TORADOL 15 MG IV ×2 (04:01→10:34)
[2024-04-15 04:04] LABS: ALT (SGPT) 22 U/L (0-35); AST (SGOT) 18 U/L (14-36); Albumin 4.2 g/dl (3.5-5.0); Alkaline Phosphatase 56 U/L (38-126); Blood Urea Nitrogen 12 mg/dl (7-17); Calcium 9.6 mg/dl (8.4-10.2); Carbon Dioxide 23 mmol/L (22-30); Chloride 104 mmol/L (98-107); Estimated Creatinine Clearance > 125 ml/min; Glucose 120 mg/dl (70-99); Lipase 205 U/L (23-300); Potassium 4.6 mmol/L (3.5-5.1); Sodium 138 mmol/L (135-145); Total Bilirubin 0.2 mg/dl (0.2-1.3); Total Protein 6.9 g/dl (6.3-8.2); eGFR > 60.00
[2024-04-15 04:55] LABS: Urine Mucus Many; Urine Squamous Cell >30 /LPF (Few)
[2024-04-15 05:05] LABS: Urine Calcium Oxalate Crystals Seen
[2024-04-15 05:06] LABS: Urine Bacteria Many (Negative)
[2024-04-15] MEDS: DILAUDID 0.5 MG IV ×3 (05:42→23:03)
--- NOTE | 2024-04-15 06:17 | HPS.HSE ---
Family Physician
-
Family Physician: NOT KNOW UNKNOWN - PT DOES
Chief Complaint
-
Flank Pain, Chills
History of Present Illness
Patient is a 23y F with PMH significant for PCOS, anxiety / depression and prior nephrolithiasis who presents to ED complaining of L flank pain, abdominal pain, shaking chills and nausea. Patient developed pain in the L flank and was seen in the
ED here on 03/25. Ct scan done at that time showed a proximal L ureteral stone measuring 4mm in size. Patient was discharged to home for pain control / supportive care. Unfortunately her pain has persisted since that time.
She states that she woke up this evening in a sweat and shaking chills. She has severe pain in the L flank with radiation into the L abdomen and L groin. She had nausea with non-bloody emesis at home.
Patient presented to the ED for further evaluation.
Patient has had prior episodes of kidney stones - though never accompanied by chills, N/V, etc.
Medical History
Past Medical History
Past Medical History: Reports Other
Additional Past Medical History:
PCOS
Morbid Obesity
Migraine Headaches
Anxiety / Depression
Borderline Personality Disorder
Lumbar Spondylosis
Chronic Leukocytosis
Nephrolithiasis
Past Surgical History: Reports Other
Additional Past Surgical History:
Cholecystectomy
Social History
Tobacco: Non-smoker
Alcohol: Occasional
Drug: Marijuana (Medical card)
Personal: Partner
Family History
Family History: Not pertinent
Allergies / Home Medications
Allergies reflects when Allergies were last updated in [facility].
Home Medications with original date entered in [facility]
Allergy/Medication List:
Allergies
Allergy/AdvReac Type Severity Reaction Status Date / Time
hydroxyzine Allergy Unknown Verified 04/15/24 02:54
lamotrigine [From Lamictal] Allergy Unknown Verified 04/15/24 02:54
oxycodone Allergy Unknown Verified 04/15/24 02:54
peanut oil Allergy Unknown Verified 04/15/24 02:54
topiramate [From Topamax] Allergy Unknown Verified 04/15/24 02:54
ziprasidone Allergy Unknown Verified 04/15/24 02:54
Home Medications
duloxetine 60 mg capsule,delayed release (Cymbalta) 60 mg PO DAILY Depression 01/07/24
hydroxyzine HCl 50 mg tablet 50 mg PO DAILYPRN PRN anxiety 01/07/24
indomethacin 75 mg capsule,extended release 75 mg PO BID uric acid 01/07/24
lurasidone 40 mg tablet (Latuda) 40 mg PO QPM Mental Health/Anxiety 01/07/24
melatonin 3 mg tablet 3 mg PO HS Sleep 01/07/24
nortriptyline 50 mg capsule (Pamelor) 50 mg PO HS Depression 01/07/24
omeprazole 40 mg capsule,delayed release 40 mg PO BID Gastrointestinal Issue 01/07/24
pregabalin 150 mg capsule (Lyrica) 150 mg PO BID Neurological Condition 01/07/24
propranolol 20 mg tablet 20 mg PO BID tremors 01/07/24
semaglutide 0.25 mg or 0.5 mg (2 mg/1.5 mL) subcutaneous pen injector (Ozempic) 1 mg SC MATTHEW Diabetes 01/07/24
sumatriptan succinate 100 mg tablet (Imitrex) 0 mg PO .COMPLEX migraine 01/07/24
trazodone 50 mg tablet 100 mg PO HS Sleep 01/07/24
buspirone 7.5 mg tablet 7.5 mg PO TID anxiety 03/25/24
dicyclomine 20 mg tablet 20 mg PO BID Gastrointestinal Issue 03/25/24
famotidine 40 mg tablet (Pepcid) 40 mg PO HS Gastrointestinal Issue 03/25/24
hydrocodone 5 mg-acetaminophen 300 mg tablet 1 tab PO BID PRN Pain #6 tabs 03/25/24
ondansetron 4 mg disintegrating tablet 4 mg PO TIDPRN PRN nausea/vomiting #10 tabs 03/25/24
dicyclomine 20 mg tablet 20 mg PO BID 04/15/24
duloxetine 60 mg capsule,delayed release sprinkle 60 mg PO BID 04/15/24
Review of Systems
-
History Source: Patient
A 12 point ROS was completed and negative except as noted: Yes
Constitutional: Reports Fatigue and Chills; Denies Fever
EENT: Denies Sore Throat
Respiratory: Denies Cough or Trouble Breathing
Cardiac: Denies Chest Pain or Palpitations
Abdomen/GI: Reports Abdominal Pain, Nausea and Vomiting; Denies Diarrhea or Bloody Stools
: Reports Dysuria and Flank Pain; Denies Bleeding
Musculoskeletal: Denies Joint Pain or Edema
Neurological: Denies Dizzy or Headache
Psych: Denies Depression or Anxiety
Physical Exam
Vital Signs
Vital Signs
Temp Pulse Resp BP Pulse Ox
97.8 F 97 23 144/90 97
04/15/24 02:51 04/15/24 05:30 04/15/24 05:30 04/15/24 05:00 04/15/24 05:30
Physical Exam
General: Other (23y F in mild distress due to pain.)
HEENT: Moist mucous membranes, PERRLA and Other (Thick neck.)
Respiratory: Clear; No Wheezes, Rales or Rhonchi
Cardiac: S1/S2 and Regular Rhythm; No Murmur
GI: Other (L sided abdominal tenderness. No rebound / guarding.)
Genito-urinary: Other (Pos L CVAT.)
Musculoskeletal: No Clubbing, No Cyanosis and No Edema
Neuro: AO x 3
Laboratory Results
-
04/15/24 03:34
04/15/24 03:34
Laboratory Results
APTT 32.6 Sec (23.4-35.0) 04/15/24 03:35
Total Bilirubin 0.2 mg/dl (0.2-1.3) 04/15/24 03:34
AST 18 U/L (14-36) 04/15/24 03:34
ALT 22 U/L (0-35) 04/15/24 03:34
Alkaline Phosphatase 56 U/L (38-126) 04/15/24 03:34
Lipase 205 U/L (23-300) 04/15/24 03:34
Impression/Plan
-
A/P: Patient is a 23y F with PMH significant for PCOS and anxiety / depression who presents to ED complaining of L flank pain, abdominal pain, N/V and chills.
Left Ureteral Stone
UTI
- Admit for further evaluation and treatment.
- CT from 03/25 with 4mm proximal L ureteral stone.
- Now with new chills, N/V, diaphoresis.
- UA difficult to interpret for infection - field obscured by calcium oxalate crystals.
- IV abx with ceftriaxone for now.
- Pain control, antiemetics, IVFs, etc.
- Tamsulosin daily. Strain urine.
- Urology consulted - NPO for possible OR later this AM.
- Follow for any new / worsening symptoms.
Chronic Leukocytosis
- WBC ranges from 15 - 23 on prior labs.
- Current value is the lowest on record.
- Follow for changes.
Anxiety / Depression
Borderline Personality Disorder
- Stable. Continue current psychotropic med regimen without changes.
PCOS
Morbid Obesity
- Affects all aspects of care.
- Patient on Ozempic as an outpatient for weight loss.
- Encourage healthy diet and increased exercise with goal of weight reduction.
DVT Prophylaxis: SCDs
Code Status: Full
[2024-04-15] MEDS: ROCEPHIN 1000 MG IV (07:11)
--- NOTE | 2024-04-15 07:14 | CONS.URO ---
Consultation
-
Date/Time Consultation Performed: 04/15/24 0655
Requesting Provider: ED
Performing Provider: Eugene
Reason for Consultation: left ureteral stone
Medical History
History of Present Illness
23-year-old female with h/o nephrolithiasis -- passed a 4 mm stone spontaneously without
surgical intervention ~ 4 years ago and a right ureteral stone during December.
Patient developed pain in the L flank and was seen in the ED here on 03/25/24. Ct scan done at that time showed a proximal L ureteral stone measuring 4mm in size. Patient was discharged to home for pain control. She reports having strained urine,
without passage of stone. Her pain has persisted. She woke up last night in a sweat and shaking chills with severe pain in the L flank with radiation into the L abdomen and L groin. She had nausea with non-bloody emesis at home.
Patient presented to the ED for further evaluation.
Past Medical History
Past Medical History: None (PCOS Morbid Obesity Migraine Headaches Anxiety / Depression Borderline Personality Disorder Lumbar Spondylosis Chronic Leukocytosis Nephrolithiasis)
Past Surgical History: Cholecystectomy
Social History
Personal:
Living: With Family
Family History
Family History: Reviewed & Not Pertinent
Allergies/Home Medications
Allergies
Allergy/AdvReac Type Severity Reaction Status Date / Time
hydroxyzine Allergy Unknown Verified 04/15/24 02:54
lamotrigine [From Lamictal] Allergy Unknown Verified 04/15/24 02:54
oxycodone Allergy Unknown Verified 04/15/24 02:54
peanut oil Allergy Unknown Verified 04/15/24 02:54
topiramate [From Topamax] Allergy Unknown Verified 04/15/24 02:54
ziprasidone Allergy Unknown Verified 04/15/24 02:54
Home Medications
�Medication �Instructions �Recorded �Confirmed �Type
duloxetine 60 mg capsule,delayed 60 mg PO DAILY Depression 01/07/24 04/15/24 History
release (Cymbalta)
hydroxyzine HCl 50 mg tablet 50 mg PO DAILYPRN PRN anxiety 01/07/24 04/15/24 History
indomethacin 75 mg 75 mg PO BID uric acid 01/07/24 04/15/24 History
capsule,extended release
lurasidone 40 mg tablet (Latuda) 40 mg PO QPM Mental Health/Anxiety 01/07/24 04/15/24 History
melatonin 3 mg tablet 3 mg PO HS Sleep 01/07/24 04/15/24 History
nortriptyline 50 mg capsule 50 mg PO HS Depression 01/07/24 04/15/24 History
(Pamelor)
omeprazole 40 mg capsule,delayed 40 mg PO BID Gastrointestinal Issue 01/07/24 04/15/24 History
release
pregabalin 150 mg capsule (Lyrica) 150 mg PO BID Neurological 01/07/24 04/15/24 History
Condition
propranolol 20 mg tablet 20 mg PO BID tremors 01/07/24 04/15/24 History
semaglutide 0.25 mg or 0.5 mg (2 1 mg SC MATTHEW Diabetes 01/07/24 04/15/24 History
mg/1.5 mL) subcutaneous pen
injector (Ozempic)
sumatriptan succinate 100 mg 0 mg PO .COMPLEX migraine 01/07/24 04/15/24 History
tablet (Imitrex)
trazodone 50 mg tablet 100 mg PO HS Sleep 01/07/24 04/15/24 History
buspirone 7.5 mg tablet 7.5 mg PO TID anxiety 03/25/24 04/15/24 History
dicyclomine 20 mg tablet 20 mg PO BID Gastrointestinal Issue 03/25/24 04/15/24 History
famotidine 40 mg tablet (Pepcid) 40 mg PO HS Gastrointestinal Issue 03/25/24 04/15/24 History
hydrocodone 5 mg-acetaminophen 300 1 tab PO BID PRN Pain #6 tabs 03/25/24 04/15/24 Rx
mg tablet
ondansetron 4 mg disintegrating 4 mg PO TIDPRN PRN nausea/vomiting 03/25/24 04/15/24 Rx
tablet #10 tabs
dicyclomine 20 mg tablet 20 mg PO BID 04/15/24 04/15/24 History
duloxetine 60 mg capsule,delayed 60 mg PO BID 04/15/24 04/15/24 History
release sprinkle
Physical Exam
Vital Signs
Vital Signs
Temp Pulse Resp BP Pulse Ox
97.8 F 101 30 132/78 91
04/15/24 02:51 04/15/24 06:45 04/15/24 06:45 04/15/24 06:00 04/15/24 06:45
Lab / Testing Results
Laboratory Results
04/15/24 03:34
04/15/24 03:34
Physical Exam
adult female sitting up on ED gurney
obese
Genito-urinary: No Costovertebral Tend
Neuro: Awake and Alert
Psych: Calm
Assessment / Plan
-
Left Ureteral Stone: 4 mm; though KUB fails to definitively locate, I opine that it is in lower ureter.
Pt offered surgical intervention today --> declined
Rec: Trial of passage
Data Reviewed
-
Diagnostic Radiology: Image personally visualized and interpreted
CT Scan: Image personally visualized and interpreted
Old Records: Reviewed
[2024-04-15] MEDS: FLOMAX 0.4 MG PO (10:18)
[2024-04-15] MEDS: BENTYL 20 MG PO ×2 (10:18→23:00)
[2024-04-15] MEDS: PROTONIX 40 MG PO ×2 (10:19→23:01)
[2024-04-15] MEDS: LYRICA 150 MG PO ×2 (10:19→22:59)
[2024-04-15] MEDS: INDERAL 20 MG PO ×2 (10:20→23:00)
[2024-04-15] MEDS: STERILE WATER FOR INJECTION IV (10:28)
[2024-04-15] MEDS: CYMBALTA DELAYED RELEASE 120 MG PO (10:33)
--- NOTE | 2024-04-15 11:54 | W.PN.UPDATE ---
Update Note
Progress Note Update
CT confirms that left ureteral stone has migrated to distal-most aspect, essentially breaching at ureteric orifice.
Per communication with Dr Choe, pt has reconsidered and would be agreeable to surgery.
As stone is likely to pass, will observe overnight but post for tomorrow's OR in case situation deteriorates or stone fails to pass.
--- NOTE | 2024-04-15 13:13 | W.PN.HOSP.TC ---
Today's Communication/Plan
-
Monitor vital signs see plan
Clears for now
N.p.o. past midnight per urology
OR tomorrow
Continue with antibiotics
Follow cultures
Nonbillable note
Assessment / Plan
Assessment / Plan
General: Other (23y F in mild distress due to pain.)
HEENT: Moist mucous membranes, PERRLA and Other (Thick neck.)
Respiratory: Clear; No Wheezes, Rales or Rhonchi
Cardiac: S1/S2 and Regular Rhythm; No Murmur
GI: Other (L sided abdominal tenderness. No rebound / guarding.)
Genito-urinary: Other (Pos L CVAT.)
Musculoskeletal: No Clubbing, No Cyanosis and No Edema
Neuro: AO x 3
Left Ureteral Stone
Sepsis (leukocytosis, tachypnea, tachycardia) likely 2/2 UTI
- CT from 03/25 with 4mm proximal L ureteral stone.
- Now with new chills, N/V, diaphoresis repeated CT; with 5mm distal stone with hydro. urology aware. Patient this morning was not agreeable for OR. Patient is now agreeable. Defer timing for the OR per urology
- UA difficult to interpret for infection - field obscured by calcium oxalate crystals.
- IV abx with ceftriaxone for now.
check bcx
- Tamsulosin daily. Strain urine.
Urology following
- Follow for any new / worsening symptoms.
Chronic Leukocytosis
- WBC ranges from 15 - 23 on prior labs.
monitor
Anxiety / Depression
Borderline Personality Disorder
- Stable. Continue current psychotropic med regimen without changes.
PCOS
Morbid Obesity
- Affects all aspects of care.
- Patient on Ozempic as an outpatient for weight loss. advised her to stop ozempic at this time
- Encourage healthy diet and increased exercise with goal of weight reduction.
DVT Prophylaxis: SCDs
Code Status: Full
Anticipated Discharge: 24 - 48 hours
Subjective/Interval History
-
Date of Service: April 15, 2024
has LLQ pain
Objective Data
-
Labs:
Laboratory Results
04/15/24 04/15/24
03:34 03:35
WBC 15.3 H
Hgb 13.3
Hct 41.1
Plt Count 383
APTT 32.6
Sodium 138
Potassium 4.6
Chloride 104
Carbon Dioxide 23
BUN 12
Creatinine 0.7
Glucose 120 H
Calcium 9.6
Total Bilirubin 0.2
AST 18
ALT 22
Alkaline Phosphatase 56
Vital Signs:
Vital Signs
Temp Pulse Resp BP Pulse Ox
98.2 F 100 20 165/98 95
04/15/24 09:30 04/15/24 10:20 04/15/24 09:30 04/15/24 10:20 04/15/24 08:00
[2024-04-15] MEDS: GENTAMICIN 55 MG IV (14:06)
[2024-04-15] MEDS: BUSPAR 7.5 MG PO ×2 (16:00→23:00)
[2024-04-15] MEDS: BUSPAR PO ×2 (18:07→18:09)
[2024-04-15] MEDS: LATUDA 40 MG PO (18:53)
[2024-04-15] MEDS: LYRICA PO (22:34)
[2024-04-15] MEDS: PAMELOR 50 MG PO (22:59)
[2024-04-15] MEDS: DESYREL 100 MG PO (23:00)
[2024-04-15] MEDS: PEPCID 40 MG PO (23:00)
[2024-04-16] VITALS (8 sets, daily range): BP systolic 131–153; BP diastolic 79–95
[2024-04-16] MEDS: NSS 1000 IV (07:20)
[2024-04-16 07:40] LABS: % Basophils 0.7 % (0-2); % Eosinophils 1.2 % (0-6); % Immature Granulocytes 0.5 % (0-0.5); % Lymphocytes 26.4 % (20.5-51.1); % Monocytes 6.3 % (1.7-9.3); % Neutrophils 64.9 % (42.2-75.2); Absolute Basophils 0.1 10^3/uL (0-0.2); Absolute Eosinophils 0.1 10^3/uL (0-0.7); Absolute Immature Granulocytes 0.1 10^3/uL (0-0.05); Absolute Lymphocytes 3.2 10^3/uL (1.2-3.4); Absolute Monocytes 0.8 10^3/uL (0.1-0.6); Absolute Neutrophils 7.8 10^3/uL (1.4-6.5); Hematocrit 39.4 % (37.0-47.0); Hemoglobin 12.9 g/dL (12.0-16.0); Mean Corp Hgb Conc. 32.7 g/dL (33.0-37.0); Mean Corpuscular Hgb 27.9 pg (27.0-31.0); Mean Corpuscular Volume 85.1 fL (81.0-99.0); Mean Platelet Volume 10.1 fL (7.4-10.4); Nucleated Red Blood Cells % 0 %; Platelet Count 372 10^3/uL (130-400); Red Blood Cell Count 4.63 10^6/uL (4.20-5.40); Red Cell Dist. Width 14.4 % (11.5-14.5); White Blood Cell Count 11.9 10^3/uL (4.8-10.8)
[2024-04-16 08:04] LABS: Blood Urea Nitrogen 8 mg/dl (7-17); Calcium 9.6 mg/dl (8.4-10.2); Carbon Dioxide 27 mmol/L (22-30); Chloride 102 mmol/L (98-107); Estimated Creatinine Clearance > 125 ml/min; Glucose 101 mg/dl (70-99); Potassium 4.7 mmol/L (3.5-5.1); Sodium 136 mmol/L (135-145); eGFR > 60.00
[2024-04-16] MEDS: STERILE WATER FOR INJECTION 10 ML IV (08:05)
[2024-04-16] MEDS: BUSPAR 7.5 MG PO ×3 (08:05→20:12)
[2024-04-16] MEDS: FLOMAX 0.4 MG PO (08:05)
[2024-04-16] MEDS: ROCEPHIN 1000 MG IV (08:05)
[2024-04-16] MEDS: LYRICA 150 MG PO ×2 (08:06→20:05)
[2024-04-16] MEDS: CYMBALTA DELAYED RELEASE 120 MG PO (08:06)
[2024-04-16] MEDS: PROTONIX 40 MG PO ×2 (08:06→20:06)
[2024-04-16] MEDS: BENTYL 20 MG PO ×2 (08:07→20:05)
[2024-04-16] MEDS: INDERAL 20 MG PO ×2 (08:07→20:06)
[2024-04-16] MEDS: DILAUDID 0.5 MG IV (08:31)
[2024-04-16] MEDS: ZOFRAN 4 MG IV (08:36)
[2024-04-16] MEDS: ATARAX 50 MG PO ×2 (11:22→17:40)
--- NOTE | 2024-04-16 12:34 | CM ---
Patient seen bedside, initial assessment completed. Patient resides with her boyfriend and boyfriends father in a single story home, one step to enter.
Patient denies the use of DME, reports her significant other is her home health aid. Patient PCP Wali Cole, pharmacy [facility]. Patient confirms prescription coverage. Patient reports she is having a procedure done today. CM will
continue to follow for all discharge planning needs.
Plan; home with family, no needs anticipated.
--- NOTE | 2024-04-16 12:42 | W.PN.HOSP.TC ---
Today's Communication/Plan
-
Monitor vital signs
see plan
N.p.o. for OR today by urology
Assessment / Plan
Assessment / Plan
General: Other (23y F in mild distress due to pain.)
HEENT: Moist mucous membranes, PERRLA and Other (Thick neck.)
Respiratory: Clear; No Wheezes, Rales or Rhonchi
Cardiac: S1/S2 and Regular Rhythm; No Murmur
GI: Other (L sided abdominal tenderness)
Genito-urinary: Other (Pos L CVAT.)
Musculoskeletal: No Clubbing, No Cyanosis and No Edema
Neuro: AO x 3
Left Ureteral Stone
Sepsis (leukocytosis, tachypnea, tachycardia) likely 2/2 UTI
- CT from 03/25 with 4mm proximal L ureteral stone.
- Now with new chills, N/V, diaphoresis repeated CT; with 5mm distal stone with hydro. urology aware. Patient now agreeable for OR. Plan for OR by urology 04/16
- UA difficult to interpret for infection - field obscured by calcium oxalate crystals.
repeat CT 04/15 noted
- IV abx with ceftriaxone for now.
check bcx
- Tamsulosin daily. Strain urine.
Urology following
- Follow for any new / worsening symptoms.
Chronic Leukocytosis
- WBC ranges from 15 - 23 on prior labs.
monitor
Anxiety / Depression
Borderline Personality Disorder
- Stable. Continue current psychotropic med regimen without changes.
PCOS
Morbid Obesity
- Affects all aspects of care.
- Patient on Ozempic as an outpatient for weight loss. advised her to stop ozempic at this time
- Encourage healthy diet and increased exercise with goal of weight reduction.
Anxiety
Hydroxyzine as needed
DVT Prophylaxis: SCDs
Code Status: Full
Anticipated Discharge: Within 24 hours
Subjective/Interval History
-
Date of Service: April 16, 2024
Still has pain
Objective Data
-
Labs:
Laboratory Results
04/16/24
06:53
WBC 11.9 H
Hgb 12.9
Hct 39.4
Plt Count 372
Sodium 136
Potassium 4.7
Chloride 102
Carbon Dioxide 27
BUN 8
Creatinine 0.7
Glucose 101 H
Calcium 9.6
Vital Signs:
Vital Signs
Temp Pulse Resp BP Pulse Ox
97.5 F 83 18 142/86 97
04/16/24 07:00 04/16/24 07:00 04/16/24 07:00 04/16/24 07:00 04/16/24 07:00
I&O
04/15/24 04/16/24 04/17/24
06:59 06:59 06:59
Intake Total 2079
Balance 2079
--- NOTE | 2024-04-16 14:38 | W.IMMPOSTOP ---
Surgical Immed Post Op Note
-
Primary Surgeon:
juan carlos
Assisting Surgeon:
Pre-op Diagnosis:
left ureteral stone
Post-op Diagnosis:
passed stone
Procedure Performed:
cysto/left ureteroscopy and stent
Anesthesia Type:
gen
Specimen / Cultures:
none
Estimated Blood Loss:
1cc
Complications:
none
Operative Findings:
nl bladder- no mucosal lesion or stone
clear urine effluxing from right kidney/UO
left ureteroscopy performed- no stone along full course of ureter
stent placed in event there was some residual edema causing sx's
observe overnight- if afebrile/nl wbc- cleared for discharge with plans for stent removal early next week
[2024-04-16] MEDS: NSS IV (16:33)
[2024-04-16] MEDS: Pyridium 200 MG PO (16:44)
--- NOTE | 2024-04-16 17:30 | PTCARENOTE ---
04/16- Patient transferred and oriented to new room without issue. AAOX3, Anxious. De-escalated patient from earlier agitation with therapeutic conversation and validation. Patient able to walk independently without issue to new room.
+PulsesX4; Skin CDI; Lungs CTA BL. Patient denies any current pain.
[2024-04-16] MEDS: LATUDA 40 MG PO (17:41)
[2024-04-16] MEDS: DESYREL 100 MG PO (20:11)
[2024-04-16] MEDS: PEPCID 40 MG PO (20:11)
[2024-04-16] MEDS: PAMELOR 50 MG PO (20:12)
[2024-04-17] MEDS: Pyridium PO (00:16)
[2024-04-17] MEDS: NSS IV ×2 (00:16→07:36)
[2024-04-17 07:30] VITALS: BP 154/110
[2024-04-17] MEDS: Pyridium 200 MG PO (07:30)
[2024-04-17] MEDS: CYMBALTA DELAYED RELEASE 120 MG PO (07:30)
[2024-04-17] MEDS: LYRICA 150 MG PO (07:30)
[2024-04-17] MEDS: PROTONIX 40 MG PO (07:30)
[2024-04-17] MEDS: BENTYL 20 MG PO (07:30)
[2024-04-17] MEDS: INDERAL 20 MG PO (07:30)
[2024-04-17] MEDS: VITAMIN D3 (cholecalciferol) 25 MCG PO (07:31)
[2024-04-17] MEDS: FLOMAX 0.4 MG PO (07:31)
[2024-04-17] MEDS: BUSPAR 7.5 MG PO (07:31)
[2024-04-17] MEDS: ROCEPHIN 1000 MG IV (07:33)
[2024-04-17] MEDS: STERILE WATER FOR INJECTION 10 ML IV (07:33)
[2024-04-17 09:17] LABS: Blood Urea Nitrogen 11 mg/dl (7-17); Calcium 9.9 mg/dl (8.4-10.2); Carbon Dioxide 28 mmol/L (22-30); Chloride 97 mmol/L (98-107); Estimated Creatinine Clearance > 125 ml/min; Glucose 113 mg/dl (70-99); Potassium 4.5 mmol/L (3.5-5.1); Sodium 136 mmol/L (135-145); eGFR > 60.00
[2024-04-17 09:35] LABS: % Basophils 0.4 % (0-2); % Eosinophils 0.1 % (0-6); % Immature Granulocytes 0.8 % (0-0.5); % Lymphocytes 14.7 % (20.5-51.1); Absolute Basophils 0.1 10^3/uL (0-0.2); Absolute Immature Granulocytes 0.1 10^3/uL (0-0.05); Absolute Lymphocytes 2.5 10^3/uL (1.2-3.4); Absolute Monocytes 0.9 10^3/uL (0.1-0.6); Absolute Neutrophils 13.5 10^3/uL (1.4-6.5); Hematocrit 43.1 % (37.0-47.0); Hemoglobin 13.8 g/dL (12.0-16.0); Mean Corpuscular Hgb 27.3 pg (27.0-31.0); Mean Corpuscular Volume 85.2 fL (81.0-99.0); Nucleated Red Blood Cells % 0 %; Platelet Count 450 10^3/uL (130-400); Red Blood Cell Count 5.06 10^6/uL (4.20-5.40); Red Cell Dist. Width 13.8 % (11.5-14.5); White Blood Cell Count 17.1 10^3/uL (4.8-10.8)
--- NOTE | 2024-04-17 11:12 | CM ---
Met with patient and her spouse at bedside; No skilled PT needed
will transport home
Plan: Discharge to home when medically stable; no needs
--- NOTE | 2024-04-17 11:36 | W.PN.HOSP.TC ---
Today's Communication/Plan
-
Monitor vital signs see plan
Transition to oral antibiotics
Discharge today
Patient will follow with urology outpatient
Time of discharge 38 minutes
Assessment / Plan
Assessment / Plan
General: Other (23y F in mild distress due to pain.)
HEENT: Moist mucous membranes, PERRLA and Other (Thick neck.)
Respiratory: Clear; No Wheezes, Rales or Rhonchi
Cardiac: S1/S2 and Regular Rhythm; No Murmur
GI: non tender
Musculoskeletal: No Edema
Neuro: AO x 3
Left Ureteral Stone
Sepsis (leukocytosis, tachypnea, tachycardia) likely 2/2 UTI
- CT from 03/25 with 4mm proximal L ureteral stone.
- Now with new chills, N/V, diaphoresis repeated CT; with 5mm distal stone with hydro. urology aware. s/p cysto/left ureteroscopy and stent. Patient will follow-up with urology outpatient. Currently without any pain.
- UA difficult to interpret for infection - field obscured by calcium oxalate crystals.
repeat CT 04/15 noted
Switch antibiotics to oral
bcx NGTD
- Tamsulosin daily.
Urology following
- Follow for any new / worsening symptoms.
Chronic Leukocytosis
- WBC ranges from 15 - 23 on prior labs.
monitor
Anxiety / Depression
Borderline Personality Disorder
- Stable. Continue current psychotropic med regimen without changes.
PCOS
Morbid Obesity
- Affects all aspects of care.
- Patient on Ozempic as an outpatient for weight loss. advised her to stop ozempic at this time
- Encourage healthy diet and increased exercise with goal of weight reduction.
Anxiety
Hydroxyzine as needed
DVT Prophylaxis: SCDs
Code Status: Full
Anticipated Discharge: Today
Subjective/Interval History
-
Date of Service: April 17, 2024
Denies pain
Objective Data
-
Labs:
Laboratory Results
04/17/24
08:09
WBC 17.1 H
Hgb 13.8
Hct 43.1
Plt Count 450 H D
Sodium 136
Potassium 4.5
Chloride 97 L
Carbon Dioxide 28
BUN 11
Creatinine 0.7
Glucose 113 H
Calcium 9.9
Vital Signs:
Vital Signs
Temp Pulse Resp BP Pulse Ox
98.0 F 95 18 154/110 100
04/17/24 07:30 04/17/24 07:30 04/17/24 07:30 04/17/24 07:30 04/17/24 07:30
I&O
04/16/24 04/17/24 04/18/24
06:59 06:59 06:59
Intake Total 2079 680 / 680
Balance 2079 680 / 680
--- NOTE | 2024-04-17 11:44 | W.DCSUMMARY ---
Discharge Summary
Discharge Data
Date of Admission: 04/15/24
Date of Discharge: 04/17/24
-
Pending Results: No
Hospital Course
23-year-old female with past medical history of kidney stones, anxiety, depression, chronic leukocytosis, PCOS, morbid obesity, anxiety came to the hospital with sepsis secondary to urinary tract infection from obstructive left ureteral stone.
Patient was seen by urology throughout hospitalization. CT scan was consistent with ureteral stone with mild hydronephrosis. Patient was taken to the OR by urology for stent placement. Postop patient started to feel better. Since patient was
feeling better and did well after OR, she was then transition to oral antibiotics and was discharged home with instructions to follow-up with all her physicians outpatient.
Discharge Plan
-
Patient Disposition: Home (Routine Discharge)
Discharge Diagnosis/Procedures: Sepsis secondary to urinary tract infection
Left ureteral stone with mild hydronephrosis status post cysto/left ureteroscopy and stent
Condition: Good
Diet: As tolerated
Activity: As tolerated
Driving Restrictions: As prior to admission
Bathing Restrictions: None
Referrals:
Owen Alves MD [Active] - (you have a stent Expect frequency urgency and blood in urine Call [phone] to schedule stent removal call today ! )
UNKNOWN - PT DOES,NOT KNOW [Family Provider] - in less than 1 week
Prescriptions:
New
phenazopyridine 200 mg Tablet
200 mg PO Q8 Qty: 9 0RF
cefdinir 300 mg capsule
300 mg PO BID 5 Days Qty: 10 0RF
Lactobacillus acidophilus 10 billion cell capsule
10,000 mmu cells PO DAILY Qty: 7 0RF
Continued
omeprazole 40 mg Capsule,Delayed Release(Dr/Ec)
40 mg PO BID
propranolol 20 mg Tablet
20 mg PO BID
Patient Comments:
no pharmacy fills, no ecw
indomethacin 75 mg Capsule, Extended Release
75 mg PO BID
nortriptyline [Pamelor] 50 mg Capsule
50 mg PO HS
duloxetine [Cymbalta] 60 mg Capsule,Delayed Release(Dr/Ec)
120 mg PO DAILY
pregabalin [Lyrica] 150 mg Capsule
150 mg PO BID
lurasidone [Latuda] 40 mg Tablet
40 mg PO QPM
trazodone 50 mg Tablet
100 mg PO HS
sumatriptan succinate [Imitrex] 100 mg Tablet
0 mg PO .COMPLEX
Rx Instructions:
take 1 tab at onset of headache; if no relief, may repeat 1 tab after at least 2 hrs; max = 2 tabs/24 hrs
hydroxyzine HCl 50 mg Tablet
50 mg PO DAILYPRN PRN (Reason: anxiety)
melatonin 3 mg Tablet
3 mg PO HS
famotidine [Pepcid] 40 mg Tablet
40 mg PO HS
dicyclomine 20 mg Tablet
20 mg PO BID
buspirone 7.5 mg Tablet
7.5 mg PO TID
ondansetron 4 mg tablet,disintegrating
4 mg PO TIDPRN PRN (Reason: nausea/vomiting) Qty: 10 0RF
tamsulosin [Flomax] 0.4 mg Capsule
0.4 mg PO DAILY
cholecalciferol (vitamin D3) [Vitamin D3] 25 mcg (1,000 unit) Tablet
25 mcg PO DAILY
Held
Ozempic 0.25 mg or 0.5 mg(2 mg/1.5 mL) Pen Injector
1 mg SC MATTHEW
Hold Instructions: Until discuss with your jig worker
Discharge Orders:
Discharge Patient (As Directed); Ordered 04/17/24
Ordered By: [place]
Discharge Date and Time
Discharge Date/Time: 04/17/24 12:48
Print Language: NEPALI
[2024-04-17 12:05] VITALS: BP 155/101
--- NOTE | 2024-04-17 13:23 | W.PN.URO.CBU ---
Today's Communication / Plan
-
d/c
Assessment / Plan
-
stabel for d/c stent out apr 20
Diagnosis
-
Date of Service: April 17, 2024
-
Patient Diagnosis:s/pu stent
Post Op Day:
Subjective
-
feels nl
Objective
-
Vital Signs
Temp Pulse Resp BP Pulse Ox
98.8 F 93 20 155/101 97
04/17/24 12:05 04/17/24 12:05 04/17/24 12:05 04/17/24 12:05 04/17/24 12:05
Intake and Output
04/16/24 04/17/24 04/18/24
06:59 06:59 06:59
Intake Total 0 / 0 680 / 680
Balance 0 / 2080 680 / 680
Intake:
Oral fluids 1080 / 1080 480 / 480
IV fluids (Total) 1000 / 1000 200 / 200
Normosol 200 / 200
Other:
Number of approximated MODERATE 2 2
amounts of urine
Laboratory Results
04/17/24 08:09
04/17/24 08:09
Review of Systems
-
: No Symptoms
Physical Exam
-
General - well developed, well nourished, no acute distress
Chest - clear bilaterally
Abdomen - soft, non-tender, positive bowel sounds, no CVAT, no incisional pain or distention
Genitalia - normal
Rectal - normal
Skin - warm & dry with no rash
Neuro - AOx3, no motor deficits
Extremities - no clubbing, no cyanosis, no wilda
Care Review
Data Reviewed
Discussed with: Hospitalist and Family
== END 2024-04-17 12:48 | disposition home or self-care (01) | DRG 854 ==
LOC: 4 WEST ACU 06:26
PROVIDERS: Specialist; ADMITTING PHYSICIAN Hospitalist; ATTENDING PHYSICIAN Internal Medicine; CONSULT PHYSICIAN Specialist; EMERGENCY PHYSICIAN Student in an Organized Health Care Education/Training Program
PROC: 0T778DZ Dilation of Left Ureter with Intraluminal Device, Via Natural or Artificial Opening Endoscopic (ICD-10-PCS; 2024-04-16)
DX: A41.9 Sepsis, unspecified organism (principal); N39.0 Urinary tract infection, site not specified; Z68.42 Body mass index [BMI] 45.0-49.9, adult; E28.2 Polycystic ovarian syndrome; E66.01 Morbid (severe) obesity due to excess calories; F32.A Depression, unspecified; F41.9 Anxiety disorder, unspecified; F60.3 Borderline personality disorder
CPT/HCPCS: 74018; 74176; 76000; 80048; 80053; 81003; 81015; 83690; 84703; 85025; 85730; 87040; 87086; 96361; 96372; 96374; 96375; 99284; C1758; C2617

== ENCOUNTER 2024-05-26 11:43 | Emergency (ER) | payer OTHER, SELFPAY ==
[2024-05-26 12:07] VITALS: BP 140/90
--- NOTE | 2024-05-26 12:09 | ED.GENMED ---
ED Provider Triage
-
Patient seen by provider in Triage?: Seen in Triage
Attestation: A medical screening examination has been initiated by a qualified medical provider. Based on the assessment performed at this time, it has been determined that an emergent medical condition may exist and the patient has been informed
that further medical evaluation and possible additional diagnostic testing may be needed.
HPI: 23-year-old female history of DJD L3, 4, S5 presents with low back pain that shoots down the back of both legs for the past 2 days. Faltered getting out of bed yesterday. No significant fall, denies any injury
She has had similar flares in the past and has had back injections, muscle relaxers, prednisone in the past. It has been a few months since her last flare.
No infectious symptoms.
There has been no incontinence of bowel or bladder, states she has had numbness in the saddle area that she has had in the past with her flares of back pain.
GENERAL: Alert , in no apparent distress
EYE: No visual abnormalities.
NECK: Trachea midline
ENT: No visible abnormalities.
LUNGS: No acute respiratory distress
NEUROLOGICAL: Alert and oriented
SKIN: Skin intact. No visible changes.
MUSCULOSKELETAL: Moving extremities normally
PSYCH: Normal and appropriate interaction.
This is a medical evaluation conducted in person to initiate diagnostic evaluation and provide initial therapeutics. Please see further documentation by the treating clinician.
History of Present Illness
General
Chief Complaint: Back Pain
Past History
Past History
ED Past Medical History: Psychiatric and Other (Kidney stones)
Social History
Tobacco: Non-smoker
Alcohol: None
Drug: None
Personal: Single
Living: with family
ED Attending Note
-
Portions of this chart may have been created with voice recognition software.� Occasional wrong word or��sound alike� substitutions may have occurred due to the inherent limitations of voice recognition software.
Discharge Plan
Departure
Prescriptions:
No Action
omeprazole 40 mg Capsule,Delayed Release(Dr/Ec)
40 mg PO BID
propranolol 20 mg Tablet
20 mg PO BID
Patient Comments:
no pharmacy fills, no ecw
indomethacin 75 mg Capsule, Extended Release
75 mg PO BID
nortriptyline [Pamelor] 50 mg Capsule
50 mg PO HS
duloxetine [Cymbalta] 60 mg Capsule,Delayed Release(Dr/Ec)
120 mg PO DAILY
pregabalin [Lyrica] 150 mg Capsule
150 mg PO BID
lurasidone [Latuda] 40 mg Tablet
40 mg PO QPM
Ozempic 0.25 mg or 0.5 mg(2 mg/1.5 mL) Pen Injector
1 mg SC MATTHEW
trazodone 50 mg Tablet
100 mg PO HS
sumatriptan succinate [Imitrex] 100 mg Tablet
0 mg PO .COMPLEX
Rx Instructions:
take 1 tab at onset of headache; if no relief, may repeat 1 tab after at least 2 hrs; max = 2 tabs/24 hrs
hydroxyzine HCl 50 mg Tablet
50 mg PO DAILYPRN PRN (Reason: anxiety)
melatonin 3 mg Tablet
3 mg PO HS
famotidine [Pepcid] 40 mg Tablet
40 mg PO HS
dicyclomine 20 mg Tablet
20 mg PO BID
buspirone 7.5 mg Tablet
7.5 mg PO TID
ondansetron 4 mg tablet,disintegrating
4 mg PO TIDPRN PRN (Reason: nausea/vomiting) Qty: 10 0RF
tamsulosin [Flomax] 0.4 mg Capsule
0.4 mg PO DAILY
cholecalciferol (vitamin D3) [Vitamin D3] 25 mcg (1,000 unit) Tablet
25 mcg PO DAILY
phenazopyridine 200 mg Tablet
200 mg PO Q8 Qty: 9 0RF
cefdinir 300 mg capsule
300 mg PO BID 5 Days Qty: 10 0RF
Lactobacillus acidophilus 10 billion cell capsule
10,000 mmu cells PO DAILY Qty: 7 0RF
Interventions
Interventions:
*Risk Screen - Suicide Last Done: 05/26/24 12:09
*General Assessment Last Done: 05/26/24 12:09
*Neglect/Abuse Screening Last Done: 05/26/24 12:09
*ED COVID-19 Vaccine History Last Done: 05/26/24 12:09
Discharge Date and Time
Print Language: CANADIAN
[2024-05-26 12:51] VITALS: BP 125/76
--- NOTE | 2024-05-26 15:15 | EDRN ---
Patient walked to ED charge desk where this RN was standing and stated 'I want to sign myself out, I'm too anxious being here.' this RN attempted to call JUSTEN Fung on work cell phone but was unable to answer the call. Patient was standing with
a steady and independent gait and then leaned against her boyfriend who then moved away from her. Patient fell looking to the floor and put her hands out to catch herself and gently fell to the floor on her right thigh and hands but is complaining
of left knee pain, the pt was not seen striking her left knee upon falling. patient began screaming and crying and c.o left knee pain immediately after falling to the ground. patient did not injure or strike head, there was no loss of
consciousness, or complaint of back pain after the fall. patient moved herself to a rocking position and stated 'I want to go home.' Chayo CAMPUZANO heard patient crying and came to the pts side. Patient was able to assist herself to the stretcher
with help of boyfriend and one staff member. Patient screaming and states 'I'm gonna nickolas you assholes.'
[2024-05-26] MEDS: TORADOL 30 MG IV (15:37)
[2024-05-26] MEDS: VALIUM INJECTION 5 MG IV (15:37)
[2024-05-26 15:51] LABS: % Basophils 0.5 % (0-2); % Eosinophils 1.4 % (0-6); % Immature Granulocytes 1.3 % (0-0.5); % Lymphocytes 21.4 % (20.5-51.1); % Monocytes 4.6 % (1.7-9.3); % Neutrophils 70.8 % (42.2-75.2); Absolute Basophils 0.1 10^3/uL (0-0.2); Absolute Eosinophils 0.2 10^3/uL (0-0.7); Absolute Immature Granulocytes 0.2 10^3/uL (0-0.05); Absolute Lymphocytes 3.2 10^3/uL (1.2-3.4); Absolute Monocytes 0.7 10^3/uL (0.1-0.6); Absolute Neutrophils 10.6 10^3/uL (1.4-6.5); Hematocrit 42.9 % (37.0-47.0); Mean Corp Hgb Conc. 32.6 g/dL (33.0-37.0); Mean Corpuscular Hgb 27.3 pg (27.0-31.0); Mean Corpuscular Volume 83.6 fL (81.0-99.0); Mean Platelet Volume 9.3 fL (7.4-10.4); Nucleated Red Blood Cells % 0 %; Platelet Count 420 10^3/uL (130-400); Red Blood Cell Count 5.13 10^6/uL (4.20-5.40); Red Cell Dist. Width 13.8 % (11.5-14.5); White Blood Cell Count 14.9 10^3/uL (4.8-10.8)
[2024-05-26 16:10] LABS: ALT (SGPT) 40 U/L (0-35); AST (SGOT) 34 U/L (14-36); Albumin 4.2 g/dl (3.5-5.0); Alkaline Phosphatase 85 U/L (38-126); Blood Urea Nitrogen 14 mg/dl (7-17); Calcium 9.7 mg/dl (8.4-10.2); Carbon Dioxide 24 mmol/L (22-30); Chloride 100 mmol/L (98-107); Glucose 106 mg/dl (70-99); Potassium 4.6 mmol/L (3.5-5.1); Sodium 135 mmol/L (135-145); Total Bilirubin 0.2 mg/dl (0.2-1.3); Total Protein 7.2 g/dl (6.3-8.2); eGFR > 60.00
[2024-05-26] MEDS: ROXICODONE 5 MG PO (16:54)
[2024-05-26] MEDS: ZOFRAN 4 MG IV (16:54)
[2024-05-26 17:13] LABS: HCG, Serum Qualitative Screen Negative
[2024-05-26 19:25] VITALS: BP 127/82
== END 2024-05-26 19:50 | disposition home or self-care (01) ==
LOC: EMR 11:43
PROVIDERS: Physician Assistant; EMERGENCY PHYSICIAN Emergency Medicine
DX: G89.29 Other chronic pain (principal); M54.16 Radiculopathy, lumbar region; Z87.442 Personal history of urinary calculi
CPT/HCPCS: 99284; 96374; 96375; 72131; 80053; 84703; 85025

== ENCOUNTER → 2024-08-13 09:05 | Outpatient (REF) | payer OTHER, SELFPAY ==
[2024-08-13 11:55] LABS: Urine Albumin 1+ (Neg - Trace); Urine Bilirubin Negative (Negative); Urine Character Slightly Cloudy (Clear); Urine Color Yellow; Urine Glucose Negative (Negative); Urine Ketone Negative (Negative); Urine Leukocyte Negative (Negative); Urine Nitrite Negative (Negative); Urine Occult Blood Negative (Negative); Urine Specific Gravity 1.025 (<1.030); Urine Urobilinogen Negative (Neg - 1+)
[2024-08-13 12:15] LABS: Urine Bacteria Few (Negative); Urine Calcium Oxalate Crystals Present; Urine Mucus Moderate; Urine Red Blood Cell 0-2 /HPF (0-2); Urine White Cell 0-2 /HPF (0-5)
== END ==
LOC: HWRAD 09:05
PROVIDERS: ATTENDING PHYSICIAN Specialist
DX: N39.0 Urinary tract infection, site not specified (principal); N20.0 Calculus of kidney
CPT/HCPCS: 74018; 81003; 81015; 87086

== ENCOUNTER 2024-11-21 09:23 | Emergency (ER) | payer OTHER, SELFPAY ==
[2024-11-21 09:25] VITALS: BP 169/103
--- NOTE | 2024-11-21 09:44 | ED.GENMED ---
History of Present Illness
General
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
Source: patient
Exam Limitations: none
Time Seen by Provider: 11/21/24 09:37
Nursing documentation reviewed up to this point in time: agreed with
History of Present Illness
History of Present Illness:
24 yo female w h/o PCOS, anxiety/depression presents for vaginal pain. States she waxed herself a month ago and has had burning and pain in the area since. Saw her [employer] doctor 3 days ago and he gave her Clobetasol 0.05% cream which she has applied
BID since. this a.m. when she applied it, it burned so bad she took a shower and rinsed it off. Her vaginal area is burning, pain 8/10. Has had a yellowish discharge, no bleeding.
Has Hx IBS and drank milk last night, vomited once and had several diarrheal stools this a.m, last one about 2 hours ago. She thinks it's because of the milk. Denies abd pain now. Denies nausea now. Denies fever/chills.
Past History
Past History
ED Past Medical History: Psychiatric and Other (Kidney stones)
Social History
Tobacco: Non-smoker
Alcohol: None
Drug: None
Personal: Single
Living: with family
Review of Systems
Review of Systems
Allergies reviewed?: Yes
All Other Systems: ROS reviewed and negative except as documented in HPI and ROS
Constitutional: Denies fever
ABD/GI: Denies abdominal pain
: Reports dysuria, discharge ('yellowish') and other (pain around vagina); Denies bleeding
Phy Exam
Physical Exam
Physical Exam:
GENERAL: No acute distress. A&Ox3.
CONSTITUTIONAL: Afebrile.
EYES: clear, conjunctivae normal
ENMT: moist mucus membranes
RESPIRATORY: Regular respirations, nonlabored, lungs clear.
CARDIOVASCULAR: Regular rate and rhythm, no murmurs, no rubs.
GI: Obese, Soft, nontender, normal BS
: few scattered lesions similar to folliculitis on mons pubis, no lesions on vaginal tissues. External vagina is mildly reddened, very tender to touch, introitus and vaginal pradhan on speculum exam reveals normal tissue, whitish yellow discharge
small amount. unable to visualize cervix due pt size and to discomfort.
MUSCULOSKELETAL: Moves with ease. Well perfused.
SKIN: Warm, dry, pink, numerous small round lesions with scabs about the face, few over mons pubis
PSYCH: Normal mood and affect. Well kept, interactive and appropriate
NEUROLOGIC: Awake, alert and oriented. No focal neurological deficits
Course
Orders/Labs/Results
Orders:
Orders
11/21/24 10:13
Urinalysis Reflex To Culture Urgent
Date Specimen was Collected: 11/21/24
Time Specimen was Collected: 10:11
Comment: ADD ON
Urine Drug Abuse Screen Urgent
Date Specimen was Collected: 11/21/24
Time Specimen was Collected: 10:11
Urine Microscopic Reflex Cult Urgent
Chlamydia/GC by PCR Urgent
[facility] Source: Urine
Specimen Description:
Source:: URINE
Date Specimen was Collected: 11/21/24
Time Specimen was Collected: 10:11
Urine Culture Urgent
[facility] Source: U
Specimen Description:
Date Specimen was Collected: 11/21/24
Time Specimen was Collected: 10:11
Ibuprofen [Motrin] 600 mg PO NOW STA
11/21/24 10:19
Test Result ONCE
11/21/24 11:18
Complete Blood Count/With Diff Urgent
Comprehensive Metabolic Panel Urgent
HCG, Serum Qualitative Screen Urgent
Teresa/Yeast Culture Urgent
[facility] Source: Vagina
Specimen Description:
Date Specimen was Collected: 11/21/24
Time Specimen was Collected: 11:09
11/21/24 13:51
HYDROmorphone [Dilaudid] 1 mg IV NOW STA
11/21/24 13:56
HYDROmorphone [Dilaudid] 1 mg .ROUTE .STK-MED ONE
11/21/24 13:58
HYDROmorphone [Dilaudid] 1 mg IV NOW STA
11/21/24 14:16
0.9% Sodium Chloride 1000 ml [Nss] 1,000 ml IV BOLUS
US Pelvis W Transvag Combined Urgent
Comment:
Reason For Exam: severe vaginal and left side mons pubis pain
11/21/24 14:22
Add On- LAB Urgent
Tests Added?: urine drug screen
11/21/24 15:41
Add On- LAB Urgent
Tests Added?: urinalysis reflex to culture
Abnormal Lab Results
11/21/24 11/21/24
10:13 11:18
MCV 80.2 L fL
(81.0-99.0)
MCH 26.6 L pg
(27.0-31.0)
Abs Immat Gran (auto) 0.1 H 10^3/uL
(0-0.05)
Absolute Neuts (auto) 7.5 H 10^3/uL
(1.4-6.5)
Immature Gran % 0.7 H %
(0-0.5)
Glucose 133 H mg/dl
(70-99)
Ur Occult Blood Reflex 1+ A
(Negative)
Leukocyte Esterase Rfl 3+ A
(Negative)
Urine WBC (Reflex) >100 A /HPF
(0-5)
Urine Albumin (Reflex) 2+ A
(Neg - Trace)
U Marijuana (THC) Screen Positive H
(Negative)
11/21/24 11:18
11/21/24 11:18
Vital Signs
Initial and Last Documented VS:
Initial Vital Signs
Temp Pulse Resp BP Pulse Ox
97.9 F 97 16 169/103 100
11/21/24 09:25 11/21/24 09:25 11/21/24 09:25 11/21/24 09:25 11/21/24 09:25
Last Documented Vital Signs
Temp Pulse Resp BP Pulse Ox
98.2 F 110 16 160/110 98
11/21/24 17:17 11/21/24 17:17 11/21/24 09:25 11/21/24 17:17 11/21/24 17:17
MDM/Problems Addressed
Differential Diagnosis Includes:
1. Contact dermatitis
2. Vulvovaginitis
3. Yeast infection
4. Bacterial vaginosis
5. Chemical irritation or burn from wax
6. Lactose intolerance
7. Gastroenteritis
8. Allergic rx to topical steroid
9. STI
10. MRSA, staph sores on face and genital area
MDM/Problems Addressed:
24 yo female w h/o PCOS, anxiety/depression presents for vaginal pain. States she waxed herself a month ago and has had burning and pain in the area since. Saw her [employer] doctor 3 days ago and he gave her Clobetasol 0.05% cream which she has applied
BID since. this a.m. when she applied it, it burned so bad she took a shower and rinsed it off. Her vaginal area is burning, pain 8/10. Has had a yellowish discharge, no bleeding.
Has Hx IBS and drank milk last night, vomited once and had several diarrheal stools this a.m, last one about 2 hours ago. She thinks it's because of the milk. Denies abd pain now. Denies nausea now. Denies fever/chills.
Afebrile, NAD
CBC with no clinically significant abnormality
CMP normal
hCG negative
1:45 p.m.
GC/Chlamydia neg
Yeast culture pending, lab states result won't be back until tomorrow
Patient is crying in pain.
Back in to reevaluate. She points to the left side of her mons pubis to identify significant pain and when I press on this area she screamed out in pain. There is no redness or warmth, no palpable mass, no cellulitis.
I also tried to retrieve another culture swab so that I could look at it myself under the microscope and in the lab to make a diagnosis before tomorrow so I can properly treat her.
She screamed and cried during insertion of a small cotton swab. Her reactions seem out of proportion to her exam and history.
In further discussion she tells me she has borderline personality disorder, PTSD, anxiety/depression. There may be a psych component to her behavior
I will add to the differential pelvic or ovarian abscess, no sign of cellulitis as the skin is normal color. No palpable masses.
IV Pain med ordered
This examiner looked at wet prep under the lab microscope, no yeast identified, many WBC's, many squamous cells, no clue cells.
US ordered
Five minutes after IV Dilaudid, pt sitting up smiling 'I feel better' RN reports pt told her only Dilaudid works for her
UDS ordered
3:40 PM:
Patient remains calm, comfortable.
I explained that her ultrasound will involve a transvaginal and described what that was to her as well as an external ultrasound and she is fine with both of them
Bladder filling, she is just starting to feel full
UDS showing marijuana only
Case discussed with Ed Joe who will assume care from this point.
*Pulse Oximetry
SaO2: 100
Oxygen Mode of Delivery: Room air
Patient hypoxic: not evaluated
*Critical Care Note
Total Time (30-74mins, 75-104mins- exclusive of procedures): Not Applicable
ED Attending Note
-
Portions of this chart may have been created with voice recognition software.� Occasional wrong word or��sound alike� substitutions may have occurred due to the inherent limitations of voice recognition software.
Discharge Plan
Departure
Patient Disposition: Home (Routine Discharge)
Date of Disposition: 11/21/24
Time of Disposition: 17:34
Patient with high blood pressure during this ER visit?: No
Condition: Good
Covid-19: Not Applicable
Discharge Problem:
Vaginitis
Instructions: Vaginitis in adults
Prescriptions:
New
metronidazole 500 mg tablet
500 mg PO BID 7 Days Qty: 14 0RF
fluconazole [Diflucan] 100 mg tablet
200 mg PO ONCE Qty: 2 0RF
No Action
omeprazole 40 mg Capsule,Delayed Release(Dr/Ec)
40 mg PO BID
propranolol 20 mg Tablet
20 mg PO BID
Patient Comments:
no pharmacy fills, no ecw
indomethacin 75 mg Capsule, Extended Release
75 mg PO BID
nortriptyline [Pamelor] 50 mg Capsule
50 mg PO HS
duloxetine [Cymbalta] 60 mg Capsule,Delayed Release(Dr/Ec)
120 mg PO DAILY
pregabalin [Lyrica] 150 mg Capsule
150 mg PO BID
lurasidone [Latuda] 40 mg Tablet
40 mg PO QPM
Ozempic 0.25 mg or 0.5 mg(2 mg/1.5 mL) Pen Injector
1 mg SC MATTHEW
trazodone 50 mg Tablet
100 mg PO HS
sumatriptan succinate [Imitrex] 100 mg Tablet
0 mg PO .COMPLEX
Rx Instructions:
take 1 tab at onset of headache; if no relief, may repeat 1 tab after at least 2 hrs; max = 2 tabs/24 hrs
hydroxyzine HCl 50 mg Tablet
50 mg PO DAILYPRN PRN (Reason: anxiety)
melatonin 3 mg Tablet
3 mg PO HS
famotidine [Pepcid] 40 mg Tablet
40 mg PO HS
dicyclomine 20 mg Tablet
20 mg PO BID
buspirone 7.5 mg Tablet
7.5 mg PO TID
ondansetron 4 mg tablet,disintegrating
4 mg PO TIDPRN PRN (Reason: nausea/vomiting) Qty: 10 0RF
tamsulosin [Flomax] 0.4 mg Capsule
0.4 mg PO DAILY
cholecalciferol (vitamin D3) [Vitamin D3] 25 mcg (1,000 unit) Tablet
25 mcg PO DAILY
phenazopyridine 200 mg Tablet
200 mg PO Q8 Qty: 9 0RF
cefdinir 300 mg capsule
300 mg PO BID 5 Days Qty: 10 0RF
Lactobacillus acidophilus 10 billion cell capsule
10,000 mmu cells PO DAILY Qty: 7 0RF
cyclobenzaprine 10 mg tablet
10 mg PO BID PRN (Reason: muscle spasm) Qty: 13 0RF
Referrals:
CHRISTELLE BURGOS [Other]
Activity Restrictions/Additional Instructions:
You came to the emergency department today with concerns of vaginal symptoms. Here you did have a reassuring assessment but did have evidence of infection. Please take the prescribed antibiotic and Diflucan and follow-up closely with your
hide and skin classer for reassessment. Return for any worsening, new or concerning symptoms.
Interventions
Interventions:
*Risk Screen - Suicide Last Done: 11/21/24 09:25
*General Assessment Last Done: 11/21/24 09:37
*Neglect/Abuse Screening Last Done: 11/21/24 09:25
*ED- Fall Risk Assessment Last Done: 11/21/24 09:37
*ED COVID-19 Vaccine History Last Done: 11/21/24 09:37
Discharge Date and Time
Print Language: SLOVENIAN
[2024-11-21] MEDS: MOTRIN 600 MG PO (11:11)
[2024-11-21 11:26] LABS: Hematocrit 41.0 % (37.0-47.0); Hemoglobin 13.6 g/dL (12.0-16.0); Mean Corp Hgb Conc. 33.2 g/dL (33.0-37.0); Mean Corpuscular Volume 80.2 fL (81.0-99.0); Nucleated Red Blood Cells % 0 %; Platelet Count 375 10^3/uL (130-400); Red Cell Dist. Width 13.6 % (11.5-14.5)
[2024-11-21 11:42] LABS: HCG, Serum Qualitative Screen Negative
[2024-11-21 11:45] LABS: ALT (SGPT) 26 U/L (0-35); AST (SGOT) 23 U/L (14-36); Albumin 4.3 g/dl (3.5-5.0); Alkaline Phosphatase 57 U/L (38-126); Blood Urea Nitrogen 15 mg/dl (7-17); Calcium 9.9 mg/dl (8.4-10.2); Carbon Dioxide 25 mmol/L (22-30); Chloride 105 mmol/L (98-107); Glucose 133 mg/dl (70-99); Potassium 4.3 mmol/L (3.5-5.1); Sodium 138 mmol/L (135-145); Total Protein 7.4 g/dl (6.3-8.2); eGFR > 60.00
[2024-11-21] MEDS: DILAUDID 1 MG IV (13:59)
[2024-11-21] MEDS: NSS 1000 IV (14:17)
[2024-11-21 16:55] LABS: Urine Character Cloudy (Clear)
[2024-11-21 17:13] VITALS: BP 160/110
[2024-11-21 17:17] VITALS: BP 160/110
[2024-11-21 17:24] LABS: Urine White Cell >100 /HPF (0-5)
== END 2024-11-21 17:10 | disposition home or self-care (01) ==
LOC: EMR 09:23
PROVIDERS: Registered Nurse; EMERGENCY PHYSICIAN Student in an Organized Health Care Education/Training Program
DX: N76.0 Acute vaginitis (principal); E28.2 Polycystic ovarian syndrome
CPT/HCPCS: 96374; 96361; 99284; 76830; 76856; 80053; 80306; 81003; 81015; 84703; 85025; 87086; 87102; 87491; 87591

== ENCOUNTER → 2025-01-06 12:06 | Outpatient (REF) | payer OTHER, SELFPAY | LOC: HWRAD 12:06 | PROVIDERS: ATTENDING PHYSICIAN Specialist | DX: N20.0 Calculus of kidney (principal) | CPT/HCPCS: 74018 ==